=== PATIENT | male | born 1965 | race Caucasian/White ===

== ENCOUNTER → 2017-11-12 08:15 | Outpatient (CLI) | payer OTHER, SELFPAY ==
[2017-11-12 09:38] LABS: Prothrombin Time (Protime)PT. 13.4 SECONDS (11.7-14.9)
== END ==
PROVIDERS: Visit Provider Nurse Practitioner Family
DX: Z79.01 Long term (current) use of anticoagulants (principal)
CPT/HCPCS: 36415; 85610

== ENCOUNTER → 2017-12-10 09:30 | Outpatient (CLI) | payer OTHER, SELFPAY ==
[2017-12-10 10:39] LABS: Prothrombin Time (Protime)PT. 13.2 SECONDS (11.7-14.9)
== END ==
PROVIDERS: Visit Provider Nurse Practitioner Family
DX: Z79.01 Long term (current) use of anticoagulants (principal)
CPT/HCPCS: 36415; 85610

== ENCOUNTER → 2017-12-24 16:21 | Outpatient (CLI) | payer OTHER, SELFPAY | PROVIDERS: Visit Provider Physician Assistant Surgical | DX: J02.9 Acute pharyngitis, unspecified (principal) | CPT/HCPCS: 87081 ==

== ENCOUNTER → 2017-12-31 18:52 | Outpatient (CLI) | payer OTHER, SELFPAY | PROVIDERS: PCP Internal Medicine; Visit Provider Otolaryngology Otolaryngology/Facial Plastic Surgery | DX: J32.9 Chronic sinusitis, unspecified (principal); J02.9 Acute pharyngitis, unspecified | CPT/HCPCS: 87070 ==

== ENCOUNTER → 2018-01-21 09:57 | Outpatient (CLI) | payer OTHER, SELFPAY ==
[2018-01-21 10:46] LABS: Prothrombin Time (Protime)PT. 12.9 SECONDS (11.7-14.9)
== END ==
PROVIDERS: Family Provider Internal Medicine; PCP Internal Medicine; Visit Provider Nurse Practitioner Family
DX: Z79.01 Long term (current) use of anticoagulants (principal)
CPT/HCPCS: 36415; 85610

== ENCOUNTER → 2018-04-23 09:00 | Outpatient (CLI) | payer OTHER, SELFPAY ==
[2018-04-23 09:35] LABS: International Normalized Ratio 1.1; Prothrombin Time (Protime)PT. 14.1 SECONDS (11.7-14.9)
== END ==
PROVIDERS: Family Provider Internal Medicine; PCP Internal Medicine; Visit Provider Nurse Practitioner Family
DX: Z79.01 Long term (current) use of anticoagulants (principal)
CPT/HCPCS: 36415; 85610

== ENCOUNTER → 2018-05-29 08:50 | Outpatient (CLI) | payer OTHER, SELFPAY ==
[2018-05-29 10:00] LABS: International Normalized Ratio 1.1
== END ==
PROVIDERS: Family Provider Internal Medicine; PCP Internal Medicine; Visit Provider Nurse Practitioner Family
DX: Z79.01 Long term (current) use of anticoagulants (principal)
CPT/HCPCS: 36415; 85610

== ENCOUNTER → 2018-07-03 10:10 | Outpatient (CLI) | payer OTHER, SELFPAY ==
[2018-07-03 10:47] LABS: International Normalized Ratio 0.9; Prothrombin Time (Protime)PT. 12.5 SECONDS (11.7-14.9)
== END ==
PROVIDERS: Family Provider Internal Medicine; PCP Internal Medicine; Referring Provider Nurse Practitioner Family; Visit Provider Nurse Practitioner Family
DX: Z79.01 Long term (current) use of anticoagulants (principal)
CPT/HCPCS: 36415; 85610

== ENCOUNTER → 2018-08-11 09:39 | Outpatient (CLI) | payer OTHER, SELFPAY ==
[2018-08-11 09:36] VITALS: BMI 27.8
--- NOTE | 2018-08-11 09:42 | RAD_ITS ---
STUDY: X-RAY - BILATERAL RIBS WITH CHEST REASON FOR EXAM: Male, 53 years old. Rib pain following a fall. TECHNIQUE - RIBS: 5 view(s) of the ribs. TECHNIQUE - CHEST: Single PA view of the chest. COMPARISON: None. FINDINGS - RIBS : Normal visualized ribs without a demonstrated fracture. FINDINGS - CHEST: The lungs are clear and expanded. There is no demonstrated pleural abnormality. Normal size heart. Normal mediastinum and cherrie. Normal visualized pulmonary arteries. Normal visualized aortic arch and descending thoracic aorta. Normal visualized thoracic spine. Normal visualized ribs, clavicles, and shoulders. There is no demonstrated abnormality of the visualized soft tissue structures of the upper abdomen. RAD/Ribs Derek Min 4V w/PA Chest IMPRESSION: RIBS: Normal x-ray examination of the bilateral ribs. CHEST: Normal x-ray examination of the chest. Electronically Signed: Lior Nguyen MD at 10:28 EST Tel [phone], Service support ,
--- OUTSIDE RECORDS SUMMARY | 2018-10-04 13:58 | XMS RPT_ITS ---
:1965 Author Organization [place] Support Name Relationship Address Phone [employer] Unavailable [address] + [place] [address] GESSEL, POLINA Unavailable [address] + [place] [address] [employer] Unavailable [address] + [place] [address] [employer] Unavailable [address] + [place] [address] [employer] Unavailable [address] + [place] [address] [employer] POL[employer] Unavailable [address] + [place] [address] [employer] Unavailable [address] + [place] [address] [employer] POL[employer] Unavailable [address] + [place] [address] [employer] Unavailable [address] + [place] [address] [employer] POLINA Unavailable [address] + [place] [address] [employer] Unavailable [address] + [place] [address] [employer] POLINA Unavailable [address] + [place] [address] [employer] Unavailable [address] + [place] [address] [employer] POL[employer] Unavailable [address] + [place] [address] [employer] Unavailable [address] + [place] [address] [employer] POL[employer] Unavailable [address] + [place] [address] [employer] Unavailable [address] + [place] [address] [employer] POL[employer] Unavailable [address] + [place] [address] [employer] Unavailable [address] + [place] [address] [employer] POL[employer] Unavailable [address] + [place] [address] [employer] Unavailable [address] + [place] [address] [employer], POLINA Unavailable [address] + [place] [address] [employer] Unavailable [address] + [place] [address] [employer] POL[employer] Unavailable [address] + [place] [address] [employer] Unavailable [address] + [place] [address] [employer], POLINA Unavailable [address] + [place] [address] [employer] POL[employer] Unavailable [address] + [place] [address] S Unavailable Unavailable Unavailable [employer], POLINA Unavailable [address] + [place] [address] S Unavailable Unavailable Unavailable Care Team Providers Name Role Phone David Dawson Attending Unavailable Luanne Ballard Referring Unavailable Jace Vazquez Attending Unavailable DOCTOR, OUT OF TOWN Referring Unavailable KELLY CAIN Primary Care Unavailable PrePolina mulligan MEDICAL TRANSCRIBER-C Attending Unavailable PrebiPolina cole MEDICAL TRANSCRIBER-C Referring Unavailable KELLY CAIN Primary Care Unavailable Kirill, Miguel Angel Consulting Unavailable Prebish, Polina MEDICAL TRANSCRIBER-C Attending Unavailable Prebish, Polina MEDICAL TRANSCRIBER-C Referring Unavailable KELLY CAIN Primary Care Unavailable Kirill, Miguel Angel Consulting Unavailable Prebish, Polina MEDICAL TRANSCRIBER-C Attending Unavailable Prebish, Polina MEDICAL TRANSCRIBER-C Referring Unavailable KELLY CAIN Primary Care Unavailable Kirill, Miguel Angel Consulting Unavailable George, Jace Attending Unavailable DOCTOR, OUT OF TOWN Referring Unavailable KELLY CAIN Primary Care Unavailable George, Jace Attending Unavailable George, Jace Referring Unavailable Rhett Millard Attending Unavailable KELLY CAIN Primary Care Unavailable Venice, Rhett Referring Unavailable Prebish, Polina MEDICAL TRANSCRIBER-C Attending Unavailable Prebish, Polina MEDICAL TRANSCRIBER-C Referring Unavailable Nellie, Luanne Primary Care Unavailable Kirill, Miguel Angel Consulting Unavailable Prebish, Polina MEDICAL TRANSCRIBER-C Attending Unavailable PREBIS, RHETT Referring Unavailable Nellie, Luanne Primary Care Unavailable Prebish, Polina MEDICAL TRANSCRIBER-C Attending Unavailable Prebish, Polina MEDICAL TRANSCRIBER-C Referring Unavailable Nellie, Luanne Primary Care Unavailable Kirill, Miguel Angel Consulting Unavailable Nellie, Luanne Primary Care Unavailable Prebish, Polina MEDICAL TRANSCRIBER-C Attending Unavailable Prebish, Polina MEDICAL TRANSCRIBER-C Referring Unavailable Kirill, Miguel Angel Consulting Unavailable Rosyles, David Attending Unavailable Nellie, Luanne Referring Unavailable Wyles, David Attending Unavailable Wyles, David Referring Unavailable Nellie, Luanne Primary Care Unavailable Wyles, David Attending Unavailable Nellie, Luanne Referring Unavailable PROBLEMS PROBLEMS DATE TYPE CONDITION / CODE ATTENDING STATUS SOURCE 08/26/2018 Unknown S20.219A - David Dawson Active [place] Contusion of Community unspecified front Hospital wall of thorax, Repository initial encounter / S20.219A(ICD-10) 12/25/2017 Unknown J02.9 - Acute George, Jace Active [place] pharyngitis, Community unspecified / Hospital J02.9(ICD-10) Repository 09/13/2017 Unknown J01.90 - Acute George, Jace Active [place] sinusitis, Community unspecified / Hospital J01.90(ICD-10) Repository PROCEDURES PROCEDURES No Procedure Records FoundRESULTS RESULTS URGENT CARE VISIT Observed: 08/25/2018 Status: F Source: [place] [facility] [address] [place] [address] OFFICE VISIT Date of Service: 08/25/18 MR#: [id number] Acct: [id number] Name: MADELAINE JUARES Rep #: [id number] : 1965 Provider: David DOSS Age/Sex: 53/M Location: [facility] [place] Status: Signed Intake Vital Signs08/25/18 Height 5 ft 9 in 08/25/18 Weight: 189 lb Intake Visit Reasons: CHEST INJURY F/U Chief Complaint: Recheck chest wall injury Allergies Penicillins Allergy (Verified 08/11/18 09:37) Other Medications Celecoxib [Celebrex] 200 mg PO DAILY 05/14/15 [History Confirmed 08/11/18] Dextroamphetamine/Amphetamine [Adderall 10 mg Tablet] 10 mg PO TID 05/14/15 [History Confirmed 08/11/18] Warfarin [Coumadin (PBKC)] 4.5 mg PO DAILY 05/14/15 [History Confirmed 08/11/18] warfarin 1 mg tablet PO 30 Days #30 12/24/17 [History Confirmed 08/11/18] PFSH Medical History Back pain (Acute) Knee pain (Acute) Seizures (Acute) Shoulder pain (Acute) TBI (traumatic brain injury) (Acute) Surgical History History of back surgery (Acute) History of knee surgery (Acute) History of shoulder surgery (Acute) Family History Other DVT (deep venous thrombosis) Factor 5 Leiden mutation, heterozygous Social History Smoking Status: Never smoker alcohol intake: never HPI HPI Chief Complaint: Recheck chest wall injury Details: MADELAINE JUARES, is a 53 M who presents to the office today for reevaluation of chest wall injury. Patient notes since last evaluation here 1 week ago his symptoms persist with slight improvement. Admits localized anterior chest wall discomfort predominantly in sternal region but also bilateral anterior chest tang laterally to bilateral axilla regions. He also admits that he has been performing lifting duties and functions at work as well as at home outside of the restrictions as previously established. Lastly, even though patient is aware he should not be taking NSAIDs due to being on Celebrex as well as warfarin, nonetheless he has been taking Advil to assist with his discomfort stating [id number] Tylenol is not enough to help with his symptoms. He notes no complaints of fever, chills, sweats, cough, shortness of breath, fatigue, or bruising. He notes no other associated symptoms and no other alleviating or aggravating factors. ROS Const Constitutional: No other (ROS negative x10 other than as noted above) Exam Const General: cooperative, healthy appearing, in distress mild (Due to anterior chest wall discomfort patient states) Nutritional Appearance: average body habitus Orientation: alert, awake, oriented x3 HENMT Head: normal to inspection, normocephalic, atraumatic Eyes General: appearance normal, both eyes and all related structures Neck Neck: normal visual inspection, full ROM, no lymphadenopathy, no meningeal signs, supple Neck mass: No Thyroid: thyroid normal Lymphatic: no lymphadenopathy noted Chest Chest palpation AND inspection: normal inspection of the chest, no other (Anterior chest wall/sternal discomfort to palpation) Resp Effort AND Inspection: normal respiratory effort, able to speak in complete sentences, symmetric chest movement, no cough Auscultation: Bilateral: Clear to Auscultation Cardio Palpation: normal PMI Rate: regular rate Rhythm: regular rhythm Heart Sounds: S1 normal, S2 normal, no gallops, no murmurs, no rubs Pulses: radial pulses present Skin General: no rashes or lesions noted, no ecchymosis Neuro General: alert, awake, oriented x3, gait normal Cognition: normal cognition Speech: speech normal Gait: normal gait Motor: muscle tone normal throughout Sensory Exam: no sensory deficits noted Psych Appearance: grossly normal Mental Status: mental status grossly normal Mood: congruent mood Affect: normal affect Speech and Movement: speech and movement normal Attitude: cooperative Thought Process: normal Thought Content: normal Judgment: judgment good Assessment AND Plan Problems 1. Chest wall contusion S20.219A Plan No change in her work restrictions as noted on [employer] which was updated today. Patient again offered repeat chest radiographs today which he is refusing. Rest, cough and deep breathing exercises, and Tylenol as needed for symptomatic relief. Due to maintenance medications, abstain from all NSAID use. Follow-up with the now clinic on September 11, 2018, sooner should symptoms worsen or any other concerns develop. Patient states acknowledging understanding all the above. This note was generated with [employer] software. It may contain incorrect words, spelling, and punctuation that were not noted in checking the note before signing. Coding Level of Care Code Off vis,est,level 3 Diagnoses Chest wall contusion S20.219A 08/25/18 0820 <Electronically signed by David DOSS> Date David DOSS Cosigner Signature: Date (if applicable) CC: URGENT CARE VISIT Observed: 08/18/2018 Status: F Source: [place] REPORT 9:16 AM [facility] REPOSITORY [facility] [address] [place] [address] OFFICE VISIT Date of Service: 08/18/18 MR#: [id number] Acct: [id number] Name: MADELAINE JUARES Rep #: [id number] : 1965 Provider: David DOSS Age/Sex: 53/M Location: [facility] [place] Status: Signed Intake Vital Signs08/18/18 Body Mass Index (BMI) 27.8 08/18/18 Height 5 ft 9 in 08/18/18 Weight: 189 lb 08/18/18 Body Mass Index (BMI) 27.8 08/18/18 Blood Pressure 120/80 Intake Visit Reasons: CHEST INJURY FOLLOW UP/ WORK COMP Allergies Penicillins Allergy (Verified 08/11/18 09:37) Other Medications Celecoxib [Celebrex] 200 mg PO DAILY 05/14/15 [History Confirmed 08/11/18] Dextroamphetamine/Amphetamine [Adderall 10 mg Tablet] 10 mg PO TID 05/14/15 [History Confirmed 08/11/18] Warfarin [Coumadin (PBKC)] 4.5 mg PO DAILY 05/14/15 [History Confirmed 08/11/18] warfarin 1 mg tablet PO 30 Days #30 12/24/17 [History Confirmed 08/11/18] PFSH Medical History Back pain (Acute) Knee pain (Acute) Seizures (Acute) Shoulder pain (Acute) TBI (traumatic brain injury) (Acute) Surgical History History of back surgery (Acute) History of knee surgery (Acute) History of shoulder surgery (Acute) Family History Other DVT (deep venous thrombosis) Factor 5 Leiden mutation, heterozygous Social History Smoking Status: Never smoker alcohol intake: never HPI HPI Details: MADELAINE JUARES, is a 53 M who presents to the office today for recheck chest wall injury. Patient notes since his last evaluation here he has continued persistent moderate aching midsternal chest wall discomfort, noting intermittent popping sensations to the same with upper extremity range of motion or deep inspiration or to palpation. He notes no complaints of shortness of breath. He is taking [id number] products to assist with his symptoms. He has been working within the work restrictions. He notes no other associated symptoms no other alleviating or aggravating factors. ROS Const Constitutional: No other (ROS negative x10 other than as noted above) Exam Const General: cooperative, healthy appearing, no acute distress, uncomfortable (Due to anterior chest wall discomfort) Nutritional Appearance: average body habitus Orientation: alert, awake, oriented x3 Chest Chest palpation AND inspection: normal inspection of the chest, normal palpation of entire chest wall (sternal tenderness to palpation) Resp Effort AND Inspection: normal respiratory effort, able to speak in complete sentences, symmetric chest movement, no cough Auscultation: Bilateral: Clear to Auscultation Cardio Palpation: normal PMI Rate: regular rate Rhythm: regular rhythm Heart Sounds: S1 normal, S2 normal, no gallops, no murmurs, no rubs Pulses: radial pulses present GI Inspection: normal to inspection Palpation: soft, no hepatosplenomegaly Skin General: no rashes or lesions noted Neuro General: alert, awake, oriented x3, gait normal Cognition: normal cognition Speech: speech normal Gait: normal gait Motor: muscle tone normal throughout Sensory Exam: no sensory deficits noted Psych Appearance: grossly normal Mental Status: mental status grossly normal Mood: congruent mood Affect: normal affect Speech and Movement: speech and movement normal Attitude: cooperative Thought Process: normal Thought Content: normal Judgment: judgment good Assessment AND Plan Problems 1. Chest wall contusion S20.219A Plan No change in work restrictions. Patient offered repeat radiographs today which he is declining, stating he may reconsider next evaluation if symptoms do not improve at that point. Follow-up with the now clinic in 1 week for reevaluation, sooner should symptoms worsen or any other concerns develop. Patient states acknowledging understanding all the above. This note was generated with [employer] dictation software. It may contain incorrect words, spelling, and punctuation that were not noted in checking the note before signing. Coding Level of Care Code Off vis,est,level 3 Diagnoses Chest wall contusion S20.219A 08/18/18 0916 <Electronically signed by David DOSS> Date David DOSS Cosigner Signature: Date (if applicable) CC: URGENT CARE VISIT Observed: 08/11/2018 Status: F Source: [place] REPORT 10:41 AM [facility] [place] RE[facility]ITORY [facility] [address] [place] [address] OFFICE VISIT Date of Service: 08/11/18 MR#: [id number] Acct: [id number] Name: MADELAINE JUARES Rep #: [id number] : 1965 Provider: David DOSS Age/Sex: 53/M Location: [facility] [place] Status: Signed Intake Vital Signs08/11/18 Height 5 ft 9 in Intake Visit Reasons: CHEST INJURY PT FELL ON EQUIPMENT/ WORK COMP/ Chief Complaint: Chest wall trauma Allergies Penicillins Allergy (Verified 08/11/18 09:37) Other Medications Celecoxib [Celebrex] 200 mg PO DAILY 05/14/15 [History Confirmed 08/11/18] Dextroamphetamine/Amphetamine [Adderall 10 mg Tablet] 10 mg PO TID 05/14/15 [History Confirmed 08/11/18] Warfarin [Coumadin (PBKC)] 4.5 mg PO DAILY 05/14/15 [History Confirmed 08/11/18] warfarin 1 mg tablet PO 30 Days #30 12/24/17 [History Confirmed 08/11/18] [facility] Medical History Back pain (Acute) Knee pain (Acute) Seizures (Acute) Shoulder pain (Acute) TBI (traumatic brain injury) (Acute) Surgical History History of back surgery (Acute) History of knee surgery (Acute) History of shoulder surgery (Acute) Family History Other DVT (deep venous thrombosis) Factor 5 Leiden mutation, heterozygous Social History Smoking Status: Never smoker alcohol intake: never HPI HPI Chief Complaint: Chest wall trauma Details: MADELAINE JAURES, is a 53 M who presents to the office today for initial evaluation of chest wall trauma which patient states occurred at work on August 08, 2018. Patient states while working on product while standing outside slipped on icy ground falling forward hitting metal product against anterior chest wall directly over the sternum and just to the right of the sternum. He notes localized aching discomfort describing it as 7/10, with pain aggravated with deep inspiration as well as range of motion bilateral upper extremities. Due to the persistence of the symptoms patient wanted to be medically evaluated today. She notes no complaints of shortness of breath/difficulty breathing, though emphasizing deep inspiration does exacerbate discomfort. He notes no other associated symptoms and no other alleviating or aggravating factors. ROS Const Constitutional: No other (Review of systems negative x10 other than as noted above) Exam Const General: cooperative, healthy appearing, no acute distress, uncomfortable Nutritional Appearance: average body habitus Orientation: alert, awake, oriented x3 HENMT Head: normal to inspection Eyes General: appearance normal, both eyes and all related structures Neck Neck: normal visual inspection, full ROM Chest Chest palpation AND inspection: normal inspection of the chest, normal palpation of entire chest wall (Though midsternal tenderness to palpation; no ecchymosis to the same) Other: Bilateral ribs and PA chest x-rays today = no acute pathology per my review, pending radiologist interpretation at the time of this dictation Resp Effort AND Inspection: normal respiratory effort, able to speak in complete sentences, symmetric chest movement, no cough Auscultation: Bilateral: Clear to Auscultation Cardio Palpation: normal PMI Rate: regular rate Rhythm: regular rhythm Heart Sounds: S1 normal, S2 normal, no gallops, no murmurs, no rubs Pulses: radial pulses present GI Inspection: normal to inspection Palpation: soft Skin General: no rashes or lesions noted Neuro General: alert, awake, oriented x3, gait normal Cognition: normal cognition Speech: speech normal Gait: normal gait Motor: muscle tone normal throughout Sensory Exam: no sensory deficits noted Psych Appearance: grossly normal Mental Status: mental status grossly normal Mood: congruent mood Affect: normal affect Speech and Movement: speech and movement normal Attitude: cooperative Thought Process: normal Thought Content: normal Judgment: judgment good Assessment AND Plan Problems 1. Chest wall contusion S2 Plan Bilateral ribs and PA chest x-rays today = no acute pathology per my review, pending radiologist interpretation at the time of this dictation; the results reviewed with patient in office today. Return to work modified duty as noted on [employer] given to patient today. Rest, ice applications, Advil/Tylenol as needed for symptomatic relief. Recheck of the now clinic in 1 week for reevaluation, sooner should symptoms worsen or any other concerns develop. Patient states acknowledging understanding all the above. This note was generated with [employer] dictation software. It may contain incorrect words, spelling, and punctuation that were not noted in checking the note before signing. Orders Orders: Coding Level of Care Code Off vis,new,level 4 Diagnoses Chest wall contusion S20.08/11/18 1041 <Electronically signed by David DOSS> Date David DOSS Cosigner Signature: Date (if applicable) CC: RIBS DEREK MIN 4V Observed: 08/11/2018 Status: F Source: [place] W/PA CHEST 9:42 AM [facility] REPOSITORY [facility] Imaging Services [address] [place] [address] Ribs Derek Min 4V w/PA Chest MR#: [id number] Acct: [id number] Name: MADELAINE JUARES Rep #: [id number] : 1965 M 53 From: Lior Nguyen MD PCP: Luanne Ballard MD Status: REG CLI Study: Ribs Derek Min 4V w/PA Chest Date of Exam: 08/11/18 Exam# [id number] Ordering Dr: David Dawson STUDY: X-RAY - BILATERAL RIBS WITH CHEST REASON FOR EXAM: Male, 53 years old. Rib pain following a fall. TECHNIQUE - RIBS: 5 view(s) of the ribs. TECHNIQUE - CHEST: Single PA view of the chest. COMPARISON: None. FINDINGS - RIBS : Normal visualized ribs without a demonstrated fracture. FINDINGS - CHEST: The lungs are clear and expanded. There is no demonstrated pleural abnormality. Normal size heart. Normal mediastinum and cherrie. Normal visualized pulmonary arteries. Normal visualized aortic arch and descending thoracic aorta. Normal visualized thoracic spine. Normal visualized ribs, clavicles, and shoulders. There is no demonstrated abnormality of the visualized soft tissue structures of the upper abdomen. RAD/Ribs Derek Min 4V w/PA Chest IMPRESSION: RIBS: Normal x-ray examination of the bilateral ribs. CHEST: Normal x-ray examination of the chest. Electronically Signed: Lior Nguyen MD at 10:28 EST Tel [phone], Service support , CC: Luanne Ballard MD; David DOSS Supervisor Floor Assembly: Signed PROTHROMBIN TIME W/INR Collected: 07/03/2018 Status: F Source: [place] 10:20 AM [facility] REPOSITORY TYPE CODE TESTS RESULT OUT OF RANGE REFERENCE UNITS LAB L300.4150 11.7-14.9 SECONDS Normal PROTIME 12.5 LAB L300.4200 Normal INR 0.9 Performed By: #### L300.3900 #### [facility] [address] [place], [place], [address] PROTHROMBIN TIME W/INR Collected: 05/29/2018 Status: F Source: [place] 8:59 AM [facility] REPOSITORY TYPE CODE TESTS RESULT OUT OF RANGE REFERENCE UNITS LAB L300.4150 11.7-14.9 SECONDS Normal PROTIME 14.0 LAB L300.4200 Normal INR 1.1 Performed By: #### L300.3900 #### [facility] [address] [place], [address] PROTHROMBIN TIME W/INR Collected: 04/23/2018 Status: F Source: [place] 9:05 AM [facility] TYPE CODE TESTS RESULT OUT OF RANGE REFERENCE UNITS LAB L300.4150 11.7-14.9 SECONDS Normal PROTIME 14.1 LAB L300.4200 Normal INR 1.1 Performed By: #### L300.3900 #### [facility] [place], [address] PROTHROMBIN TIME W/INR Collected: 01/21/2018 Status: F Source: [place] 10:06 AM [facility] REPOSITORY TYPE CODE TESTS RESULT OUT OF RANGE REFERENCE UNITS LAB L300.4150 11.7-14.9 SECONDS Normal PROTIME 12.9 LAB L300.4200 Normal INR 1.0 Performed By: #### L300.3900 #### [facility] [address] [place], [place] [address] [place], [address] Observed: 12/31/2017 Status: F Source: [place] CULTURE, THROAT 11:00 AM [facility] [place] REPOSITORY Culture, Throat Mixed normal respiratory jovi. No Haemophilus, Streptococcus pneumoniae, beta-hemolytic Streptococcus or Staphylococcus aureus isolated. Performed By: #### M100.1000 #### [facility] [address] [place], [place], [address] URGENT CARE VISIT Observed: 12/24/2017 Status: F Source: [place] REPORT 11:25 AM [facility] [place] REPOSITORY [address] [place] [address] OFFICE VISIT Date of Service: 12/24/17 MR#: [id number] Acct: [id number] Name: MADELAINE JUARES Rep #: [id number] : 1965 Provider: Jace DOSS Age/Sex: 52/M Location: [facility] [place] Status: Signed Intake Vital Signs12/24/17 Height 5 ft 9 in 12/24/17 Weight: 182 lb 12/24/17 Body Mass Index (BMI) 26.9 12/24/17 Blood Pressure 142/90 Intake Visit Reasons: SORE THROAT X 1 MONTH [employer] Required: No Is patient in pain?: No Allergies Penicillins Allergy (Verified 12/24/17 09:27) Other Medications Celecoxib [Celebrex] 200 mg PO DAILY 05/14/15 [History Confirmed 09/13/17] Dextroamphetamine/Amphetamine [Adderall 10 mg Tablet] 10 mg PO TID 05/14/15 [History Confirmed 09/13/17] Warfarin [Coumadin (PBKC)] 4.5 mg PO DAILY 05/14/15 [History Confirmed 09/13/17] hydrocodone 5 mg-acetaminophen 325 mg tablet 1 tab PO Q6H 09/13/17 [History Confirmed 09/13/17] azithromycin 250 mg tablet 250 mg PO QDAY 5 Days #6 tab 12/24/17 [Rx Confirmed 12/24/17] warfarin 1 mg tablet PO 30 Days #30 12/24/17 [History Confirmed 12/24/17] PFSH Medical History Back pain (Acute) Knee pain (Acute) Seizures (Acute) Shoulder pain (Acute) TBI (traumatic brain injury) (Acute) Surgical History History of back surgery (Acute) History of knee surgery (Acute) History of shoulder surgery (Acute) Family History Other DVT (deep venous thrombosis) Factor 5 Leiden mutation, heterozygous Social History Smoking Status: Never smoker alcohol intake: never HPI HPI Details: MADELAINE JUARES, is a 52 M who presents to the office today for sore throat for the past 1 month. Patient states that at the beginning of the episode he had the flu which has completely resolved and then continued with sore throat. He also reports some episodes of nasal congestion and drainage however currently does not have this. He has tried several cafi-moo-pnwrdwk medications with no relief. He has had no fever, chills, sweats. No nausea, vomiting, diarrhea. No chest pain or shortness of breath. No other associated symptoms or alleviating/aggravating factors. ROS Const Constitutional: No fever(s), headache(s), anorexia, chills or abnormal sleep pattern ENT ENT: Positive for post nasal drip, sore throat, nasal congestion and nasal discharge; no headache(s) or ear pain Resp Respiratory: No shortness of breath Cardio Cardiology: No irregular heart rhythm or palpitations Gastro GI: No nausea/dyspepsia Neuro Neurology: No headache(s) or behavioral changes Psych Psychiatric: No abnormal sleep pattern, No behavioral changes Exam Const General: cooperative, healthy appearing HENMT Head: normal to inspection Ears: hearing grossly normal bilaterally, TM's normal bilaterally, EAC's normal Nose: external nose normal, nasal discharge clear Mouth: oral mucosae normal Throat: abnormal tonsil bilaterally Resp Effort AND Inspection: normal respiratory effort Auscultation: Bilateral: Clear to Auscultation Cardio Palpation: normal PMI Rate: regular rate Rhythm: regular rhythm Neuro General: CN's II-XI intact bilaterally, alert Psych Appearance: grossly normal Mental Status: mental status grossly normal Results BMSRAPIDSTREPA Office Rapid Strep A Negative Last Edit by Mary Craven on 12/24/17 10:22 Assessment AND Plan Problems 1. Acute pharyngitis, unspecified etiology J02.9 Status Acute Plan Azithromycin as prescribed today and patient notified of potential interactions with azithromycin and warfarin and to notify his provider who monitors his INR level. Encouraged to get plenty of rest, drink lots of clear liquids, and use Tylenol or Ibuprofen (unless contraindicated) for fever and comfort. Patient also educated on other symptomatic management techniques. To be seen in 7-10 days if no improvement; sooner if worsening of symptoms. Patient advised of potential red flags were appropriate report to the ED. Patient verbalized understanding of all the above. Orders Orders: Medications New: azithromycin Take 2 tabs once on day one then take one zavu128 mg PO QDAY 5 days J02.9 et once daily for the next 4 days. Coding Level of Care Code Off vis,est,level 3 Diagnoses Acute pharyngitis, unspecified etiology J02.9 Pharyngitis/tonsillitis etiology: unspecified etiology 12/24/17 1125 <Electronically signed by Jace DOSS> Date Jace DOSS Cosigner Signature: Date (if applicable) CC: Observed: 12/24/2017 Status: F Source: [place] CULTURE, R/O STREP A 10:00 AM [facility] REPOSITORY ALY Culture No Group A Beta Streptococcus isolated. * This cultures intended use is to screen for Beta Streptococcus A only. All other pathogens and potential pathogens will not be screened for or reported. If a complete workup of all potential pathogens is indicated an order for a routine throat culture is required. Performed By: #### M100.010 #### [facility] [address] [place], [address] PROTHROMBIN TIME W/INR Collected: 12/10/2017 Status: F Source: MARIBETH 9:34 AM [facility] REPOSITORY TYPE CODE TESTS RESULT OUT OF RANGE REFERENCE UNITS LAB L300.4150 11.7-14.9 SECONDS Normal PROTIME 13.2 LAB L300.4200 Normal INR 1.0 Performed By: #### L300.3900 #### [facility] [address] [place], [place], [address] PROTHROMBIN TIME W/INR Collected: 11/12/2017 Status: F Source: [place] 8:23 AM [facility] REPOSITORY TYPE CODE TESTS RESULT OUT OF RANGE REFERENCE UNITS LAB L300.4150 11.7-14.9 SECONDS Normal PROTIME 13.4 LAB L300.4200 Normal INR 1.0 Performed By: #### L300.3900 #### [facility] [address] [place], [address] PROTHROMBIN TIME W/INR Collected: 10/03/2017 Status: F Source: MAR[place]ETH 8:41 AM [facility] REPOSITORY TYPE CODE TESTS RESULT OUT OF RANGE REFERENCE UNITS LAB L300.4150 11.7-14.9 SECONDS Normal PROTIME 13.8 LAB L300.4200 Normal INR 1.1 Performed By: #### L300.3900 #### [facility] [address] [place], [address] URGENT CARE VISIT Observed: 09/13/2017 Status: F Source: MAR[place]ETH REPORT 4:52 PM [facility] REPOSITORY [facility] [address] [place] [address] [address] [place] [address] OFFICE VISIT Date of Service: 09/13/17 MR#: [id number] Acct: [id number] Name: MADELAINE JUARES Rep #: [id number] : 1965 Provider: Jace DOSS Age/Sex: 52/M Location: [facility] [place] Status: Signed Intake Vital Signs09/13/17 Height 5 ft 9 in Intake Visit Reasons: sinus infection Is patient in pain?: No Allergies Penicillins Allergy (Verified 09/13/17 16:34) Other Medications Celecoxib [Celebrex] 200 mg PO DAILY 05/14/15 [History Confirmed 09/13/17] Dextroamphetamine/Amphetamine [Adderall 10 mg Tablet] 10 mg PO TID 05/14/15 [History Confirmed 09/13/17] Warfarin [Coumadin (PBKC)] 4.5 mg PO DAILY 05/14/15 [History Confirmed 09/13/17] doxycycline hyclate 100 mg capsule 100 mg PO BID 10 Days #20 cap 09/13/17 [Rx Confirmed 09/13/17] hydrocodone 5 mg-acetaminophen 325 mg tablet 1 tab PO Q6H 09/13/17 [History Confirmed 09/13/17] PFSH Medical History Sinusitis, acute (Acute) Back pain (Acute) Knee pain (Acute) Seizures (Acute) Shoulder pain (Acute) TBI (traumatic brain injury) (Acute) Surgical History History of back surgery (Acute) History of knee surgery (Acute) History of shoulder surgery (Acute) Family History Other DVT (deep venous thrombosis) Factor 5 Leiden mutation, heterozygous Social History Smoking Status: Never smoker alcohol intake: never HPI sinus infection : Details: MADELAINE JUARES, is a 52 M who presents to the office today for sinus congestion/pressure for the past 2 weeks. Patient states that he initially started with cold type symptoms of cough nasal congestion and pressure with a cough resolving since then and the nasal pain and pressure increasing. Patient states over the past several days the congestion and pressure has caused a sinus headache and affected his equilibrium. Patient denies fever, chills, sweats. No chest pain or shortness of breath. No other associated symptoms or alleviating/aggravating factors. ROS Const Constitutional: Positive for headache(s); no fever(s), chills, night sweats or abnormal sleep pattern ENT ENT: Positive for headache(s), nasal congestion, sinus pressure, sinus pain and nasal discharge; no ear pain Resp Respiratory: No cough or shortness of breath Cardio Cardiology: No shortness of breath, irregular heart rhythm or fast heart rate Neuro Neurology: Positive for headache(s); no confusion Psych Psychiatric: No abnormal sleep pattern, No confusion Exam Const General: cooperative HENMT Head: normal to inspection Ears: hearing grossly normal bilaterally Nose: nasal discharge purulent Face and sinus: sinus tenderness frontal and maxillary Mouth: oral mucosae normal Throat: abnormal tonsil bilaterally, postnasal drainage Resp Effort AND Inspection: normal respiratory effort Auscultation: Bilateral: Clear to Auscultation Cardio Rate: regular rate Rhythm: regular rhythm Neuro General: alert, CN's II-XI intact bilaterally Psych Appearance: grossly normal Mental Status: mental status grossly normal Assessment AND Plan Problems 1. Acute non-recurrent frontal sinusitis J01.10; J01.10 Status Acute Plan Encouraged to get plenty of rest, drink lots of clear liquids, and use Tylenol or Ibuprofen (unless contraindicated) for fever and comfort. Patient also educated on other symptomatic management techniques. To be seen in 7-10 days if no improvement; sooner if worsening of symptoms. Patient advised of potential red flags and when appropriate report to the ED. Patient verbalized understanding all the above. Medications New: Discontinued: meclizine Discontinued Reason: Pt no lo25 mg PO Q8H PRN PRN Vertigo Pat craven taking cephalexin Discontinued Reason: Pt no l500 mg PO Q6 Pat N César onger taking Coding Level of Care Code Off vis,new,level 3 Diagnoses Acute non-recurrent frontal sinusitis J01.10; J01.10 Sinusitis location: frontal Recurrence: non-recurrent 09/13/17 1652 <Electronically signed by Jace DOSS> Date Jace DOSS Cosigner Signature: Date (if applicable) CC: ALLERGIES ALLERGIES DATE TYPE / CODE NAME / CODE REACTION SEVERITY SOURCE 08/11/2018 Drug Penicillins/ Other Unknown [facility] Allergy/4160 [id number]([facility] [address]772(SNOMED XNORM) Repository CT) ENCOUNTERS ENCOUNTERS ADMIT/DISCHARGE ACCOUNT ADMITTING ENCOUNTER LOCATION SOURCE NUMBER CLASS 08/25/2018/ [id number] Ambulatory BMSBuilding:B [place] 1 [place] Repository 08/18/2018/ [id number] Ambulatory BMSBuilding:B [place] 8 0 [place] Repository 08/11/2018 [id number] Ambulatory [place] 0 [facility] ing:HPRAD Repository 08/11/2018/ [id number] Ambulatory BMSBuilding:B [place] 8 5 [place] Repository 07/03/2018 [id number] Ambulatory [place] 7 [facility] ing:LAB Repository 05/29/2018 [id number] Ambulatory [place] 4 [facility] ing:LAB Repository 04/23/2018 [id number] Ambulatory [place] 6 [facility] ing:LAB Repository 01/21/2018 [id number] Ambulatory [place] 9 [facility] ing:LAB Repository 12/31/2017 [id number] Ambulatory [place] 2 [facility] ing:LABSPEC Repository 12/24/2017 [id number] Ambulatory [place] 0 [facility] ing:LABSPEC Repository 12/24/2017/ [id number] Ambulatory BMSBuilding:B [place] 8 8 [place] Repository 12/10/2017 [id number] Ambulatory [place] 8 [facility] ing:LAB Repository 11/12/2017 [id number] Ambulatory [place] 8 [facility] ing:LAB Repository 10/03/2017 [id number] Ambulatory [place] 9 [facility] ing:LAB Repository 09/13/2017/ [id number] Ambulatory BMSBuilding:B [place] 8 4 [place] [facility] Repository PAYERS PAYERS ENCOUNTER GUARANTOR PAYER SUBSCRIBER SOURCE 08/25/2018 MADELAINE R Primary Insurance:OB MADELAINE Toure [place] [id number] COMP MANAGEMENTPolicy GESSELDOB: [facility] RDAPPLE Number: [id number], [place] [id number] Repository [address]Aml: (330) Date:7487-69-80XU [phone] () [address] [place], [place] [address]TF: 08/25/2018 Secondary NOT GIVENUNK [place] Insurance:SELF PAY [facility] Number: Effective Repository Date:2018-08-25 08/18/2018 MADELAINE R Primary Insurance:[facility] MADELAINE [place] [id number] COMP MANAGEMENTPolicy GESSELDOB: [facility] RDAPPLE Number: [id number], [place] [id number] Repository [address]Jea: (330) Date:7212-21-24GX [phone] () [address] [place], [place] [address]BT: 08/18/2018 Secondary NOT GIVENUNK [place] Insurance:SELF PAY [facility] Number: Effective Repository Date:2018-08-18 08/11/2018 MADELAINE R Primary Insurance:OB MADELAINE Toure [place] [id number] COMP MANAGEMENTPolicy GESSELDOB: [facility] RDAPPLE Number: [id number], [place] [id number] Repository [address]Wuu: (330) Date:3083-70-72TL [phone] (HP) [address] [address]OW: 08/11/2018 Secondary NOT GIVENUNK [place] Insurance:SELF PAY [facility] Number: Effective Repository Date:2018-08-11 08/11/2018 MADELAINE R Primary MADELAINE R [place] [id number] Insurance:MEDICAL GESSELDOB: [facility] CATALINA PAULSON [facility] 2523-13-03DJXOg[place], [place] Number: Repository [id number]: 330 [id number] [phone] (HP) Date:8076-20-07AJ [address] [place] [phone]: 08/11/2018 Secondary NOT GIVENUNK [place] Insurance:SELF PAY [facility] Number: Effective Repository Date:2018-08-11 07/03/2018 MADELAINE R Primary MADELAINE R [place] [id number] Insurance:MEDICAL [facility]LDOB[facility] [id number], [place] Number: Repository [id number]: 330 [id number] [phone] (HP) Date:0610-03-76EC [address] [phone]: 07/03/2018 Secondary NOT GIVENUNK [place] Insurance:SELF PAY [facility] Number: Effective Repository Date:2018-07-03 05/29/2018 MADELAINE R Primary MADELAINE R [place] [id number] Insurance:MEDICAL GESSELDOB: [facility] CATALINA PAULSON [facility] [id number], [place] Number: Repository [id number]: 330 [id number] [phone] (HP) Date:5960-58-78YL [address] [phone]: 05/29/2018 Secondary NOT GIVENUNK [place] Insurance:SELF PAY [facility] Number: Effective Repository Date:2018-05-29 04/23/2018 MADELAINE R Primary MADELAINE R [place] [id number] Insurance:MEDICAL GESSELDOB: [facility] [id number], [place] Number: Repository [id number]: 330 [id number] [phone] (HP) Date:9245-66-24TZ [address] [address]IZ: 04/23/2018 Secondary NOT GIVENUNK [place] Insurance:SELF PAY [facility] Number: Effective Repository Date:2018-04-23 01/21/2018 MADELAINE R Primary MADELAINE R [place] [id number] Insurance:MEDICAL GESSELDOB: [facility] [id number], [place] Number: Repository [id number]: 330 [id number] [phone] (HP) Date:4344-81-88BL [address] [address]XC: 01/21/2018 Secondary NOT GIVENUNK [place] Insurance:SELF PAY [facility] Number: Effective Repository Date:2018-01-21 12/31/2017 MADELAINE R Primary MADELAINE R [place] [id number] Insurance:MEDICAL GESSELDOB: [facility] [id number], [place] Number: Repository [phone]: 330 [id number] [phone] (HP) Date:8675-47-91RS [address] [place] [address]IE: 12/31/2017 Secondary NOT GIVENUNK [place] Insurance:SELF PAY [facility] Number: Effective Repository Date:2017-12-31 12/24/2017 MADELAINE R Primary MADELAINE R [place] [id number] Insurance:MEDICAL GESSELDOB: [facility] [id number], [place] Number: Repository [id number]: 330 [id number] [phone] (HP) Date:7955-34-25WG [address] [place] [address]QN: 12/24/2017 Secondary NOT GIVENUNK [place] Insurance:SELF PAY [facility] Number: Effective Repository Date:2017-12-24 12/24/2017 MADELAINE R Primary MADELAINE R [place] [id number] Insurance:MEDICAL GESSELDOB: Community [facility] [id number], [place] Number: Repository [id number]: 330 [id number] [phone] (HP) Date:7323-71-27CR [address] [place] [address]HJ: 12/24/2017 Secondary NOT GIVENUNK [place] Insurance:SELF PAY [facility] Number: Effective Repository Date:2017-12-24 12/10/2017 MADELAINE R Primary MADELAINE R [place] [id number] Insurance:MEDICAL GESSELDOB: [facility] [id number], [place] Number: Repository [id number]: 330 [id number] [phone] (HP) Date:0904-08-85JV [address] [phone]: 12/10/2017 Secondary NOT GIVENUNK [place] Insurance:SELF PAY [facility] Number: Effective Repository Date:2017-12-10 11/12/2017 MADELAINE R Primary MADELAINE R [place] [id number] Insurance:MEDICAL GESSELDOB: [facility] 8394-93-09OCHOg[place], [place] Number: Repository [address]Plb: 330 [id number] [phone] (HP) Date:4189-00-64KE [address] [place] [phone]: 11/12/2017 Secondary NOT GIVENUNK [place] Insurance:SELF PAY [facility] Number: Effective Repository Date:2017-11-12 10/03/2017 MADELAINE R Primary MADELAINE Stahl [id number] Insurance:MEDICAL GESSELDOB: [facility] [id number], [place] Number: Repository [id number]: ([phone]) [id number] [phone] () Date:4292-93-89VB [address] [place] [address]DR: 10/03/2017 Secondary NOT GIVENUNK [place] Insurance:SELF PAY [facility] Number: Effective Repository Date:2017-10-03 09/13/2017 MADELAINE R Primary MADELAINE Stahl [id number] Insurance:MEDICAL GESSELDOB: [facility] [id number], [place] Number: Repository [id number]: ([phone]) [id number] [phone] () Date:2614-74-49MS [address] [place] [phone]: 09/13/2017 Secondary NOT GIVENUNK [place] Insurance:SELF PAY [facility] Number: Effective Repository Date:2017-09-13
== END ==
PROVIDERS: Family Provider Internal Medicine; PCP Internal Medicine; Referring Provider Physician Assistant; Visit Provider Physician Assistant
DX: S20.219A Contusion of unspecified front wall of thorax, initial encounter (principal)
CPT/HCPCS: 71111

== ENCOUNTER → 2018-10-05 11:41 | Outpatient (CLI) | payer OTHER, SELFPAY ==
[2018-10-02 08:17] VITALS: BMI 27.8
[2018-10-05 12:57] LABS: Prothrombin Time (Protime)PT. 13.1 SECONDS (11.7-14.9)
== END ==
PROVIDERS: Family Provider Internal Medicine; PCP Internal Medicine; Referring Provider Anesthesiology Pain Medicine; Visit Provider Anesthesiology Pain Medicine
DX: Z79.01 Long term (current) use of anticoagulants (principal)
CPT/HCPCS: 36415; 85610

== ENCOUNTER → 2018-12-18 | Outpatient (CLI) | payer OTHER, SELFPAY ==
[2018-10-02 08:17] VITALS: BMI 27.8
[2018-12-18 09:27] LABS: International Normalized Ratio 1.1; Prothrombin Time (Protime)PT. 13.5 SECONDS (11.7-14.9)
== END | disposition home or self-care (01) ==
LOC: LAB 08:34
PROVIDERS: Family Provider Internal Medicine; PCP Internal Medicine; Referring Provider Nurse Practitioner Family; Visit Provider Nurse Practitioner Family
DX: Z79.01 Long term (current) use of anticoagulants (principal)
CPT/HCPCS: 36415; 85610

== ENCOUNTER → 2019-01-27 | Outpatient (CLI) | payer OTHER, SELFPAY ==
[2018-10-02 08:17] VITALS: BMI 27.8
[2019-01-27 12:04] LABS: International Normalized Ratio 1.1; Prothrombin Time (Protime)PT. 13.8 SECONDS (11.7-14.9)
== END | disposition home or self-care (01) ==
LOC: LAB 08:55
PROVIDERS: Family Provider Internal Medicine; PCP Internal Medicine; Referring Provider Nurse Practitioner Family; Visit Provider Nurse Practitioner Family
DX: Z79.01 Long term (current) use of anticoagulants (principal)
CPT/HCPCS: 36415; 85610

== ENCOUNTER → 2019-04-15 07:07 | Outpatient (CLI) | payer OTHER, SELFPAY ==
[2019-03-21 12:07] VITALS: BMI 27.8
[2019-04-15 07:31] LABS: International Normalized Ratio 1.1; Prothrombin Time (Protime)PT. 13.7 SECONDS (11.7-14.9)
== END ==
PROVIDERS: Family Provider Internal Medicine; PCP Internal Medicine; Referring Provider Nurse Practitioner Family; Visit Provider Nurse Practitioner Family
DX: Z79.01 Long term (current) use of anticoagulants (principal)
CPT/HCPCS: 36415; 85610

== ENCOUNTER 2019-05-18 23:24 | Emergency (ER) | payer OTHER, SELFPAY ==
[2019-05-07 10:17] VITALS: BMI 27.8
[2019-05-18 23:25] VITALS: BP 160/93; PULSE 61; RESP 18; TEMP 36.8; O2SAT 100; BMI 24.8
--- NOTE | 2019-05-19 00:02 | CT_ITS ---
STUDY: CT SOFT TISSUE NECK WITH CONTRAST REASON FOR EXAM: Male, 54 years old. Pain in the right side of the face and neck. RADIATION DOSAGE (If Supplied By Facility): CTDIvol = ( 17.78 ) mGy, DLP = ( 430.48 ) mGycm TECHNIQUE: The patient was scanned in a multi-detector CT scanner. High resolution transaxial imaging was performed following intravenous administration of 75 IV Isovue 370. Sagittal and coronal images were reconstructed. Individualized dose optimization techniques were used for this CT. COMPARISON: None. FINDINGS: Normal bilateral parotid glands. Normal bilateral halal butcher spaces. Normal bilateral parapharyngeal spaces. Normal bilateral carotid spaces. Normal bilateral sublingual and submandibular glands and spaces. Normal visualized nasopharynx. Normal retropharyngeal space. Normal perivertebral space. Normal visualized bilateral faucial tonsils. The visualized tongue, tongue base and oropharynx are normal. The visualized cervical lymph nodes (levels I-) are within normal size limits, and maintain normal morphology. There is no demonstrated solid or cystic mass lesion. There is no abnormal contrast enhancement. Normal epiglottis, bilateral vallecula and hypopharynx. The pre-epiglottic and paraglottic adipose spaces are normal. Normal visualized bilateral piriform sinuses, aryepiglottic folds, vocal cords, and arytenoid-cricoid articulations. Normal subglottic trachea. Normal bilateral lobes of the thyroid gland. Normal visualized pulmonary apices. There is a polyp or retention cyst in the right maxillary sinus and there is mucoperiosteal thickening in bilateral ethmoid sinuses, consistent with chronic sinusitis. There is no demonstrated acute sinusitis, at the visualized levels. There is multilevel degenerative changes of the cervical spine. CT/Soft Tissue Neck WITH Contrast IMPRESSION: Normal enhanced CT examination of the soft tissues of the neck. Electronically Signed: Tim Melchor MD at 1:35 EDT , Service support ,
--- NOTE | 2019-05-19 00:03 | ED.DCSUM_ITS ---
History of Present Illness Chief Complaint: Other, Pain/Inj Narrative: Patient is a 54-year-old male who presents with right-sided neck pain. He has been having some right sided face pain for a couple weeks. This is sharp. It lasts up to 20 minutes at a time and he usually gets a couple episodes a day. However today his pain was a much larger area beginning at his collarbone all the way up to his scalp. He currently rates his pain as a 7-8 out of 10. He recently was treated for abscess stomatitis and the symptoms are improving. He also complains of right ear pain. The pain he was previously having seem to be centered at the back of the jaw and under the ear. His pain is also worse with palpation or certain movements. 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 No cough or congestion. Past Medical History - Allergies and Home Meds Allergies/Adverse Reactions: Allergies Penicillins Allergy (Verified 05/18/19 23:28) Other Primary Care Physician: Luanne Ballard MD [Primary Care Provider] - Past Medical History: - - Factor V Leiden, history of DVTs Smoking Status: Never smoker Review of Systems All systems negative except as indicated General: Denies: Fever ENT: Reports: Right ear pain, - - Facial pain, right neck pain Cardiovascular: Denies: Chest pain Respiratory: Denies: Dyspnea Gastrointestinal: Denies: Nausea, Vomiting Skin: Denies: Rash Neurological: Denies: Headache Physical Exam Vital Signs/Narrative: Vital Signs Temp Pulse Resp BP Pulse Ox 05/18/19 23:25 98.2 F 61 18 160/93 H 100 Inital Vital Signs reviewed: Yes General: Well nourished, Well developed Head: Normocephalic Eyes: EOMI ENT: Moist mucous membranes, TM's clear Neck: Supple, - - Patient does have tenderness along the soft tissue of the neck on the right side no appreciable mass no lymphadenopathy no facial or sinus tenderness Cardiovascular: Regular rate, Regular rhythm, - - No carotid bruit Respiratory: No distress, CTA bilaterally Abdomen: Soft Skin: No rash Neurological: Alert, Normal Strength, Normal Sensation, - - No focal or lateralizing neurological deficits Diagnostic/Tx/Re-eval Impressions Soft Tissue Neck CT 05/19/19 00:02 IMPRESSION: Normal enhanced CT examination of the soft tissues of the neck. Electronically Signed: Tim Melchor MD at 1:35 EDT , Service support , 05/19/19 00:02 Soft Tissue Neck WITH Contrast [CT] Stat Laboratory Results 05/19/19 05/19/19 05/19/19 00:10 00:10 00:10 WBC 3.9 L RBC 4.44 L Hgb 14.1 Hct 42.1 MCV 94.8 H MCH 31.8 MCHC 33.5 RDW Std Deviation 41.6 RDW Coeff of Jazmin 11.9 Plt Count 188 MPV 9.7 Immature Gran % (Auto) 0.300 Neut % (Auto) 48.7 Lymph % (Auto) 36.7 [place] % (Auto) 9.9 Eos % (Auto) 3.6 Baso % (Auto) 0.8 Absolute Neuts (auto) 1.9 L Absolute Lymphs (auto) 1.44 Nucleated RBC % 0 PT 23.9 H INR 2.1 Sodium 143 Potassium 3.6 Chloride 108 H Carbon Dioxide 31.0 Anion Gap 4 L BUN 12 Creatinine 1.10 Estim Creat Clear Calc 77.42 Est GFR (MDRD) Af Amer 89 Est GFR (MDRD) Non-Af 74 BUN/Creatinine Ratio 10.9 Glucose 93 Calcium 9.1 - Medical Decision Making Laboratory study and imaging as above. Initial differential include processes such as neck mass or infection or with his history of coagulopathy jugular thrombosis was also considered. Therefore CT of the soft tissue the neck with IV contrast was obtained. Fortunately this is normal. The etiology of the patient's symptoms is unclear. I discussed possibilities with him including trigeminal neuralgia given his facial and scalp pain although I would not expect this to cause any pain in the neck. He was advised to follow-up as an outpatient for further evaluation. He actually has an appointment with otolaryngology in the morning. We discussed that if they are unable to find a diagnosis he may need to see neurology. Patient understands to return for new or worsening symptoms. All questions answered at bedside. He was treated with morphine and Zofran here and feels much better on reevaluation. He has [place] at home. Patient discharged. ED Disposition - Plan for ED Patient: Disposition: Home or Assisted Living Diagnosis: Facial pain, Neck pain on right side Referrals: Luanne Ballard MD [Primary Care Provider] - Additional Instructions: You were seen today for facial and neck pain. The cause of your symptoms is unclear at this point but did not appear to be due to an acute life-threatening problem. Your laboratory studies and CAT scan were okay. You should return if he develop new or worsening symptoms and otherwise follow-up as an outpatient.
[2019-05-19] MEDS: Ondansetron 4 MG/2 ML Vial IV (00:11)
[2019-05-19] MEDS: Morphine 4 MG/ML Syringe IV (00:12)
[2019-05-19 00:26] LABS: Absolute Lymphocyte Count 1.44 X10^3/uL (0.83-4.51); Absolute Neutrophil Count 1.9 X10^3/uL (2.0-7.7); Basophil# 0.03 X10^3/uL; Basophil% 0.8 % (0-1); Eosinophil# 0.14 X10^3/uL; Eosinophils% 3.6 % (0-5); Hematocrit 42.1 % (40-54); Hemoglobin 14.1 g/dL (13.0-16.5); Lymphocyte # 1.44 X10^3/ul (4.0); Lymphocyte % 36.7 % (19-41); Mean Corp Hgb Conc 33.5 g/dL (32-36); Mean Corpuscular Hgb 31.8 pg (27.0-32.0); Mean Corpuscular Volume 94.8 fL (80-94); Mean Platelet Vol. 9.7 fl (6.2-12.0); Monocyte# 0.39 X10^3/uL; Monocyte% 9.9 % (0-10); NRBC Flagged by Analyzer 0 % (0-5); Neutrophil # 1.91 X10^3/uL (2.7-7.7); Neutrophil % 48.7 % (47-70); Platelet Count 188 K/mm3 (150-450); RBC Distribution Width CV 11.9 % (11.6-14.6); RBC Distribution Width SD 41.6 fl (35.1-43.9); Red Blood Count 4.44 M/mm3 (4.6-6.2); White Blood Count 3.9 K/mm3 (4.4-11.0)
[2019-05-19 00:33] LABS: International Normalized Ratio 2.1; Prothrombin Time (Protime)PT. 23.9 SECONDS (11.7-14.9)
[2019-05-19 00:38] LABS: Anion Gap 4 (5-15); BUN 12 mg/dL (7-18); BUN/Creat Ratio 10.9 RATIO (10-20); Calcium,Total 9.1 mg/dL (8.5-10.1); Chloride 108 mmol/L (98-107); EST Glomerular Filtration Rate 74 mL/min (>60); Est Glom Filt Rate - Afr Amer 89 mL/min (>60); Estimated Creatinine Clearance 77.42 ml/min; Glucose 93 mg/dL (74-106); Potassium 3.6 mmol/L (3.5-5.1); Sodium Level 143 mmol/L (136-145)
[2019-05-19 01:54] VITALS: BP 138/83; PULSE 56; RESP 17; O2SAT 99
--- NOTE | 2019-05-19 01:54 | ED.RN ---
PT AND FAMILY GIVEN WRITTEN AND VERBAL DISCHARGE INSTRUCTIONS. PT EDUCATED ON FOLLOW UP, PT TO RETURN TO ED FOR ANY NEW OR WORSENED SX. PT VERBALIZES UNDERSTANDING AND DENIES ANY FURTHER QUESTIONS. IV D/C AND COVERED WITH 2X2 GAUZE AND PAPER TAPE. PT AMBULATES OUT OF DEPT WITH .
== END 2019-05-19 01:56 | disposition home or self-care (01) ==
PROVIDERS: Emergency Provider Emergency Medicine; Family Provider Internal Medicine; PCP Internal Medicine
DX: M54.2 Cervicalgia (principal); R51 Headache; D68.51 Activated protein C resistance; Z86.718 Personal history of other venous thrombosis and embolism; Z79.01 Long term (current) use of anticoagulants
CPT/HCPCS: 70491; 80048; 85025; 85610; 96374; 96375; 99283; Q9967; A4216; J2405

== ENCOUNTER → 2019-05-19 | Outpatient (CLI) | payer OTHER, SELFPAY ==
[2019-05-18 23:25] VITALS: BMI 24.8
== END | disposition home or self-care (01) ==
LOC: LABSPEC 15:22
PROVIDERS: Family Provider Internal Medicine; PCP Internal Medicine; Referring Provider Otolaryngology Otolaryngology/Facial Plastic Surgery; Visit Provider Otolaryngology Otolaryngology/Facial Plastic Surgery
DX: K12.1 Other forms of stomatitis (principal)
CPT/HCPCS: 87070

== ENCOUNTER → 2019-07-14 | Outpatient (CLI) | payer OTHER, SELFPAY ==
[2019-07-14 09:44] LABS: International Normalized Ratio 1.1; Prothrombin Time (Protime)PT. 13.5 SECONDS (11.7-14.9)
== END | disposition home or self-care (01) ==
LOC: LAB 08:40
PROVIDERS: Family Provider Internal Medicine; PCP Internal Medicine; Referring Provider Anesthesiology Pain Medicine; Visit Provider Anesthesiology Pain Medicine
DX: Z79.01 Long term (current) use of anticoagulants (principal)
CPT/HCPCS: 36415; 85610

== ENCOUNTER → 2019-08-25 09:34 | Outpatient (CLI) | payer OTHER, SELFPAY ==
[2019-08-25 10:55] LABS: International Normalized Ratio 1.1; Prothrombin Time (Protime)PT. 13.7 SECONDS (11.7-14.9)
== END ==
PROVIDERS: Family Provider Internal Medicine; PCP Internal Medicine; Referring Provider Nurse Practitioner Family; Visit Provider Nurse Practitioner Family
DX: Z79.01 Long term (current) use of anticoagulants (principal)
CPT/HCPCS: 36415; 85610

== ENCOUNTER → 2019-09-29 09:10 | Outpatient (CLI) | payer OTHER, SELFPAY ==
[2019-09-29 10:01] LABS: Prothrombin Time (Protime)PT. 13.4 SECONDS (11.7-14.9)
== END ==
PROVIDERS: PCP Internal Medicine; Referring Provider Nurse Practitioner Family; Visit Provider Nurse Practitioner Family
DX: Z79.01 Long term (current) use of anticoagulants (principal)
CPT/HCPCS: 36415; 85610

== ENCOUNTER → 2020-01-20 | Outpatient (CLI) | payer OTHER, SELFPAY ==
[2020-01-20 09:39] LABS: Prothrombin Time (Protime)PT. 12.9 SECONDS (11.7-14.9)
== END | disposition home or self-care (01) ==
LOC: LAB 08:02
PROVIDERS: PCP Internal Medicine; Referring Provider Nurse Practitioner Family; Visit Provider Nurse Practitioner Family
DX: Z79.01 Long term (current) use of anticoagulants (principal)
CPT/HCPCS: 36415; 85610

== ENCOUNTER → 2020-02-23 | Outpatient (CLI) | payer OTHER, SELFPAY ==
[2020-02-23 10:22] LABS: Prothrombin Time (Protime)PT. 13.1 SECONDS (11.7-14.9)
== END | disposition home or self-care (01) ==
LOC: LAB 09:24
PROVIDERS: PCP Internal Medicine; Referring Provider Nurse Practitioner Family; Visit Provider Nurse Practitioner Family
DX: Z79.01 Long term (current) use of anticoagulants (principal)
CPT/HCPCS: 36415; 85610

== ENCOUNTER → 2020-04-12 | Outpatient (CLI) | payer OTHER, SELFPAY ==
[2020-04-12 10:16] LABS: International Normalized Ratio 1.1; Prothrombin Time (Protime)PT. 13.4 SECONDS (11.7-14.9)
== END | disposition home or self-care (01) ==
LOC: LAB 09:27
PROVIDERS: PCP Internal Medicine; Referring Provider Nurse Practitioner Family; Visit Provider Nurse Practitioner Family
DX: Z79.01 Long term (current) use of anticoagulants (principal)
CPT/HCPCS: 36415; 85610

== ENCOUNTER → 2020-06-08 | Outpatient (CLI) | payer OTHER, SELFPAY ==
[2020-06-08 10:24] LABS: International Normalized Ratio 1.1; Prothrombin Time (Protime)PT. 13.5 SECONDS (11.7-14.9)
== END | disposition home or self-care (01) ==
LOC: LAB 09:11
PROVIDERS: PCP Internal Medicine; Referring Provider Nurse Practitioner Family; Visit Provider Nurse Practitioner Family
DX: Z79.01 Long term (current) use of anticoagulants (principal)
CPT/HCPCS: 36415; 85610

== ENCOUNTER → 2020-08-02 09:13 | Outpatient (CLI) | payer OTHER, SELFPAY ==
[2020-08-02 09:48] LABS: Prothrombin Time (Protime)PT. 12.7 SECONDS (11.7-14.9)
== END ==
PROVIDERS: PCP Internal Medicine; Referring Provider Nurse Practitioner Family; Visit Provider Nurse Practitioner Family
DX: Z79.01 Long term (current) use of anticoagulants (principal)
CPT/HCPCS: 36415; 85610

== ENCOUNTER → 2020-09-13 09:13 | Outpatient (CLI) | payer OTHER, SELFPAY ==
[2020-09-13 10:23] LABS: Prothrombin Time (Protime)PT. 12.6 SECONDS (11.7-14.9)
== END ==
PROVIDERS: PCP Internal Medicine; Referring Provider Nurse Practitioner Family; Visit Provider Nurse Practitioner Family
DX: Z79.01 Long term (current) use of anticoagulants (principal)
CPT/HCPCS: 36415; 85610

== ENCOUNTER → 2020-11-01 09:29 | Outpatient (CLI) | payer OTHER, SELFPAY ==
[2020-11-01 10:20] LABS: International Normalized Ratio 1.1; Prothrombin Time (Protime)PT. 13.4 SECONDS (11.7-14.9)
== END ==
PROVIDERS: PCP Internal Medicine; Referring Provider Nurse Practitioner Family; Visit Provider Nurse Practitioner Family
DX: Z79.01 Long term (current) use of anticoagulants (principal)
CPT/HCPCS: 36415; 85610

== ENCOUNTER → 2020-11-29 09:34 | Outpatient (CLI) | payer OTHER, SELFPAY ==
[2020-11-29 10:06] LABS: Prothrombin Time (Protime)PT. 12.8 SECONDS (11.7-14.9)
== END ==
PROVIDERS: PCP Internal Medicine; Referring Provider Nurse Practitioner Family; Visit Provider Nurse Practitioner Family
DX: Z79.01 Long term (current) use of anticoagulants (principal)
CPT/HCPCS: 36415; 85610

== ENCOUNTER → 2021-02-14 09:16 | Outpatient (CLI) | payer OTHER, SELFPAY ==
[2021-02-14 10:20] LABS: Prothrombin Time (Protime)PT. 12.5 SECONDS (11.7-14.9)
== END ==
PROVIDERS: PCP Internal Medicine; Referring Provider Nurse Practitioner Family; Visit Provider Nurse Practitioner Family
DX: Z79.01 Long term (current) use of anticoagulants (principal)
CPT/HCPCS: 36415; 85610

== ENCOUNTER → 2021-03-30 08:39 | Outpatient (CLI) | payer OTHER, SELFPAY ==
[2021-03-30 10:33] LABS: Prothrombin Time (Protime)PT. 12.8 SECONDS (11.7-14.9)
== END ==
PROVIDERS: PCP Internal Medicine; Referring Provider Nurse Practitioner Family; Visit Provider Nurse Practitioner Family
DX: Z79.01 Long term (current) use of anticoagulants (principal)
CPT/HCPCS: 36415; 85610

== ENCOUNTER → 2021-05-09 09:45 | Outpatient (CLI) | payer OTHER, SELFPAY ==
--- NOTE | 2021-05-09 09:57 | BD_ITS ---
STUDY: DUAL ENERGY X-RAY ABSORPTIOMETRY / DXA REASON FOR EXAM: Male, 56 years old. Z79.52. TECHNIQUE: Bone Mineral Density (BMD) measurements of lumbar spine and bilateral hips were obtained. COMPARISON: None. FINDINGS: Lumbar Spine (L1-L4): g/cm2 (0.813) / T-score (-2.5) / Z-score (-2.0) Findings are suggestive of osteopenia with a high fracture risk. Left Femur Total: g/cm2 (0.784) / T-score (-1.6) / Z-score (-1.2) Left Femoral Neck: g/cm2 (0.686) / T-score (-1.8) / Z-score (-0.9) Right Femur Total: g/cm2 (0.773) / T-score (-1.7) / Z-score (-1.3) Right Femoral Neck: g/cm2 (0.713) / T-score (-1.6) / Z-score (-0.7) . BD/Dexa Bone Density Study IMPRESSION: The patient is considered osteopenic as outlined below according to World Luis Daniel Organization (WHO) criteria with a high fracture risk. Reference Information: The T-score is the number of standard deviations above or below the standard which is normal for young adults at their peak bone mineral density. The World Health Organization (WHO) interprets the T-scores as follows: Above -1 Normal bone density Between -1 and -2.5 Osteopenia Equal to / or below -2.5 Osteoporosis As a practical clinical guideline, osteopenia may be graded as follows: Mild -1 through -1.5 Moderate -1.6 through -2.0 Severe -2.1 through -2.4 The Z-score is the number of standard deviations above or below age-matched controls. A Z-score of less than -1.5 would be considered abnormal. References: 1. NIH Osteoporosis and Related Bone Diseases www osteo.org 2. International Society for Clinical Densitometry www iscd.org 3. National Osteoporosis Foundation www nof.org Electronically Signed: Lior Nguyen MD at 11:58 EDT , Service support ,
== END ==
PROVIDERS: PCP Internal Medicine; Referring Provider Internal Medicine; Visit Provider Internal Medicine
DX: Z79.52 Long term (current) use of systemic steroids (principal)
CPT/HCPCS: 77080

== ENCOUNTER → 2021-05-24 07:39 | Outpatient (CLI) | payer OTHER, SELFPAY ==
[2021-05-24 08:32] LABS: International Normalized Ratio 1.1; Prothrombin Time (Protime)PT. 13.3 SECONDS (11.7-14.9)
== END ==
PROVIDERS: PCP Internal Medicine; Referring Provider Nurse Practitioner Family; Visit Provider Nurse Practitioner Family
DX: Z79.01 Long term (current) use of anticoagulants (principal)
CPT/HCPCS: 36415; 85610

== ENCOUNTER → 2021-06-29 09:10 | Outpatient (CLI) | payer OTHER, SELFPAY ==
[2021-06-29 09:52] LABS: Prothrombin Time (Protime)PT. 12.7 SECONDS (11.7-14.9)
== END ==
PROVIDERS: PCP Internal Medicine; Referring Provider Nurse Practitioner Family; Visit Provider Nurse Practitioner Family
DX: Z79.01 Long term (current) use of anticoagulants (principal)
CPT/HCPCS: 36415; 85610

== ENCOUNTER 2021-10-05 09:03 | Outpatient (CLI) | payer OTHER, SELFPAY ==
[2021-10-05 09:45] LABS: Absolute Lymphocyte Count 1.53 X10^3/uL (0.83-4.51); Absolute Neutrophil Count 5.1 X10^3/uL (2.0-7.7); Basophil# 0.04 X10^3/uL; Basophil% 0.5 % (0-1); Eosinophil# 0.19 X10^3/uL; Eosinophils% 2.6 % (0-5); Hematocrit 42.6 % (40-54); Hemoglobin 14.1 g/dL (13.0-16.5); Lymphocyte # 1.53 X10^3/ul (0.83-4.51); Lymphocyte % 20.9 % (19-41); Mean Corp Hgb Conc 33.1 g/dL (32-36); Mean Corpuscular Hgb 30.9 pg (27.0-32.0); Mean Corpuscular Volume 93.4 fL (80-94); Mean Platelet Vol. 10.1 fl (6.2-12.0); Monocyte# 0.46 X10^3/uL; Monocyte% 6.3 % (0-10); NRBC Flagged by Analyzer 0 % (0-5); Neutrophil # 5.09 X10^3/uL (2.7-7.7); Neutrophil % 69.4 % (47-70); Platelet Count 244 K/mm3 (150-450); RBC Distribution Width CV 12.1 % (11.6-14.6); RBC Distribution Width SD 41.8 fl (35.1-43.9); Red Blood Count 4.56 M/mm3 (4.6-6.2); White Blood Count 7.3 K/mm3 (4.4-11.0)
[2021-10-05 09:52] LABS: Prothrombin Time (Protime)PT. 12.8 SECONDS (11.7-14.9)
[2021-10-05 10:19] LABS: Hepatitis B Surface Antibody Non-Reactive
[2021-10-05 10:27] LABS: AST(SGOT) 27 U/L (15-37); Alanine Aminotransfer ALT/SGPT 29 U/L (16-61); Albumin, Serum 3.6 g/dL (3.2-5.0); Alkaline Phosphatase 83 U/L (45-117); Anion Gap 3 (5-15); BUN 16 mg/dL (7-18); BUN/Creat Ratio 16.4 RATIO (10-20); Chloride 107 mmol/L (98-107); Creatinine, Serum 0.98 mg/dL (0.70-1.30); EST Glomerular Filtration Rate 84 mL/min (>60); Est Glom Filt Rate - Afr Amer 101 mL/min (>60); Globulin 3.6 g/dL (2.2-4.2); Glucose 90 mg/dL (74-106); Potassium 4.2 mmol/L (3.5-5.1); Protein, Total 7.2 g/dL (6.4-8.2); Sodium Level 139 mmol/L (136-145)
[2021-10-06 08:09] LABS: HEPATITIS B SURFACE AG Negative (Negative); Hepatitis A IgM Antibody Negative (Negative); Hepatitis B Core AB IgM Negative (Negative)
[2021-10-06 17:54] LABS: Hep C Antibodies <0.1 s/co ratio (0.0-0.9); Hepatitis A AB, Total Positive (Negative)
== END 2021-10-05 23:59 | disposition short-term general hospital (02) ==
LOC: LAB 09:07
PROVIDERS: PCP Internal Medicine; Referring Provider Dermatology; Visit Provider Dermatology
DX: L43.8 Other lichen planus (principal); L40.0 Psoriasis vulgaris
CPT/HCPCS: 36415; 80053; 80074; 85025; 85610; 86706; 86708

== ENCOUNTER 2021-11-07 07:11 | Outpatient (CLI) | payer OTHER, SELFPAY ==
[2021-11-07 08:17] LABS: International Normalized Ratio 1.1; Prothrombin Time (Protime)PT. 13.1 SECONDS (11.7-14.9)
== END 2021-11-07 23:59 | disposition home or self-care (01) ==
LOC: LAB 07:12
PROVIDERS: PCP Internal Medicine; Referring Provider Nurse Practitioner Family; Visit Provider Nurse Practitioner Family
DX: Z79.01 Long term (current) use of anticoagulants (principal)
CPT/HCPCS: 36415; 85610

== ENCOUNTER 2021-12-12 10:13 | Outpatient (CLI) | payer OTHER, SELFPAY ==
[2021-12-12 11:15] LABS: Absolute Lymphocyte Count 1.52 X10^3/uL (0.83-4.51); Absolute Neutrophil Count 2.8 X10^3/uL (2.0-7.7); Basophil# 0.04 X10^3/uL; Basophil% 0.8 % (0-1); Eosinophil# 0.23 X10^3/uL; Eosinophils% 4.6 % (0-5); Hematocrit 44.7 % (40-54); Hemoglobin 14.8 g/dL (13.0-16.5); Lymphocyte # 1.52 X10^3/ul (0.83-4.51); Lymphocyte % 30.7 % (19-41); Mean Corp Hgb Conc 33.1 g/dL (32-36); Mean Corpuscular Hgb 30.6 pg (27.0-32.0); Mean Corpuscular Volume 92.5 fL (80-94); Mean Platelet Vol. 9.8 fl (6.2-12.0); Monocyte# 0.39 X10^3/uL; Monocyte% 7.9 % (0-10); NRBC Flagged by Analyzer 0 % (0-5); Neutrophil # 2.76 X10^3/uL (2.7-7.7); Neutrophil % 55.8 % (47-70); Platelet Count 217 K/mm3 (150-450); RBC Distribution Width CV 12.5 % (11.6-14.6); RBC Distribution Width SD 42.7 fl (35.1-43.9); Red Blood Count 4.83 M/mm3 (4.6-6.2)
[2021-12-12 11:50] LABS: ALB/GLOB Ratio 1.1 RATIO (0.9-2.4); AST(SGOT) 29 U/L (15-37); Alanine Aminotransfer ALT/SGPT 36 U/L (16-61); Albumin, Serum 3.7 g/dL (3.2-5.0); Alkaline Phosphatase 73 U/L (45-117); Anion Gap 2 (5-15); BUN 9 mg/dL (7-18); Chloride 106 mmol/L (98-107); EST Glomerular Filtration Rate 82 mL/min (>60); Est Glom Filt Rate - Afr Amer 99 mL/min (>60); Globulin 3.5 g/dL (2.2-4.2); Glucose 87 mg/dL (74-106); Potassium 4.2 mmol/L (3.5-5.1); Protein, Total 7.2 g/dL (6.4-8.2); Sodium Level 139 mmol/L (136-145)
[2021-12-12 11:54] LABS: International Normalized Ratio 1.1; Prothrombin Time (Protime)PT. 13.4 SECONDS (11.7-14.9)
== END 2021-12-12 23:59 | disposition home or self-care (01) ==
PROVIDERS: PCP Internal Medicine; Visit Provider Dermatology
DX: L43.8 Other lichen planus (principal); B02.29 Other postherpetic nervous system involvement
CPT/HCPCS: 36415; 80053; 85025; 85610

== ENCOUNTER → 2022-01-16 | Outpatient (CLI) | payer OTHER, SELFPAY ==
[2022-01-16 10:19] LABS: International Normalized Ratio 1.1; Prothrombin Time (Protime)PT. 13.9 SECONDS (11.7-14.9)
== END | disposition home or self-care (01) ==
LOC: LAB 09:00
PROVIDERS: PCP Internal Medicine; Referring Provider Nurse Practitioner Family; Visit Provider Nurse Practitioner Family
DX: Z79.01 Long term (current) use of anticoagulants (principal)
CPT/HCPCS: 36415; 85610

== ENCOUNTER → 2022-04-17 | Outpatient (CLI) | payer OTHER, SELFPAY ==
[2022-04-17 10:11] LABS: Prothrombin Time (Protime)PT. 12.7 SECONDS (11.7-14.9)
== END | disposition home or self-care (01) ==
LOC: LAB 08:29
PROVIDERS: PCP Internal Medicine; Visit Provider Nurse Practitioner Family
DX: Z79.01 Long term (current) use of anticoagulants (principal)
CPT/HCPCS: 36415; 85610

== ENCOUNTER → 2022-06-21 | Outpatient (CLI) | payer OTHER, SELFPAY ==
[2022-06-21 10:29] LABS: Prothrombin Time (Protime)PT. 12.9 SECONDS (11.7-14.9)
== END | disposition home or self-care (01) ==
PROVIDERS: PCP Internal Medicine; Referring Provider Nurse Practitioner Family; Visit Provider Nurse Practitioner Family
DX: Z79.01 Long term (current) use of anticoagulants (principal)
CPT/HCPCS: 36415; 85610

== ENCOUNTER → 2022-07-31 | Outpatient (CLI) | payer OTHER, SELFPAY ==
[2022-07-31 09:43] LABS: Absolute Lymphocyte Count 1.39 X10^3/uL (0.83-4.51); Basophil# 0.04 X10^3/uL; Basophil% 0.6 % (0-1); Eosinophil# 0.29 X10^3/uL; Eosinophils% 4.7 % (0-5); Hematocrit 43.5 % (40-54); Hemoglobin 15.1 g/dL (13.0-16.5); Lymphocyte # 1.39 X10^3/ul (0.83-4.51); Lymphocyte % 22.4 % (19-41); Mean Corp Hgb Conc 34.7 g/dL (32-36); Mean Corpuscular Hgb 32.1 pg (27.0-32.0); Mean Corpuscular Volume 92.4 fL (80-94); Mean Platelet Vol. 9.1 fl (6.2-12.0); Monocyte# 0.47 X10^3/uL; Monocyte% 7.6 % (0-10); NRBC Flagged by Analyzer 0 % (0-5); Neutrophil % 64.4 % (47-70); Platelet Count 183 K/mm3 (150-450); RBC Distribution Width SD 41.1 fl (35.1-43.9); Red Blood Count 4.71 M/mm3 (4.6-6.2); White Blood Count 6.2 K/mm3 (4.4-11.0)
[2022-07-31 10:16] LABS: ALB/GLOB Ratio 1.2 RATIO (0.9-2.4); AST(SGOT) 28 U/L (15-37); Alanine Aminotransfer ALT/SGPT 31 U/L (16-61); Albumin, Serum 3.7 g/dL (3.2-5.0); Alkaline Phosphatase 60 U/L (45-117); Anion Gap 2 (5-15); BUN 10 mg/dL (7-18); BUN/Creat Ratio 9.7 RATIO (10-20); Calcium,Total 9.4 mg/dL (8.5-10.1); Chloride 108 mmol/L (98-107); Creatinine, Serum 1.03 mg/dL (0.70-1.30); EST Glomerular Filtration Rate 78 mL/min (>60); Est Glom Filt Rate - Afr Amer 95 mL/min (>60); Glucose 101 mg/dL (74-106); Potassium 4.5 mmol/L (3.5-5.1); Protein, Total 6.7 g/dL (6.4-8.2); Sodium Level 141 mmol/L (136-145)
== END | disposition home or self-care (01) ==
LOC: LAB 09:05
PROVIDERS: PCP Internal Medicine; Referring Provider Dermatology; Visit Provider Dermatology
DX: L43.8 Other lichen planus (principal); H61.032 Chondritis of left external ear; L82.1 Other seborrheic keratosis; L81.4 Other melanin hyperpigmentation; D18.01 Hemangioma of skin and subcutaneous tissue; L57.8 Other skin changes due to chronic exposure to nonionizing radiation; D48.5 Neoplasm of uncertain behavior of skin; Z85.828 Personal history of other malignant neoplasm of skin; Z87.2 Personal history of diseases of the skin and subcutaneous tissue; Z79.01 Long term (current) use of anticoagulants
CPT/HCPCS: 36415; 80053; 85025; 85610

== ENCOUNTER → 2022-11-06 | Outpatient (CLI) | payer OTHER, SELFPAY ==
[2022-11-06 10:12] LABS: Prothrombin Time (Protime)PT. 13.1 SECONDS (11.7-14.9)
== END | disposition home or self-care (01) ==
LOC: LAB 09:33
PROVIDERS: PCP Internal Medicine; Referring Provider Nurse Practitioner Family; Visit Provider Nurse Practitioner Family
DX: Z79.01 Long term (current) use of anticoagulants (principal)
CPT/HCPCS: 36415; 85610

== ENCOUNTER → 2022-12-19 | Outpatient (CLI) | payer OTHER, SELFPAY ==
[2022-12-19 08:49] LABS: International Normalized Ratio 1.1; Prothrombin Time (Protime)PT. 13.6 SECONDS (11.7-14.9)
== END | disposition home or self-care (01) ==
LOC: LAB 07:26
PROVIDERS: PCP Internal Medicine; Referring Provider Nurse Practitioner Family; Visit Provider Nurse Practitioner Family
DX: Z79.01 Long term (current) use of anticoagulants (principal)
CPT/HCPCS: 36415; 85610

== ENCOUNTER → 2023-01-22 | Outpatient (CLI) | payer OTHER, SELFPAY ==
[2023-01-22 09:22] LABS: Absolute Lymphocyte Count 1.22 X10^3/uL (0.83-4.51); Absolute Neutrophil Count 2.7 X10^3/uL (2.0-7.7); Basophil# 0.03 X10^3/uL; Basophil% 0.7 % (0-1); Eosinophil# 0.15 X10^3/uL; Eosinophils% 3.3 % (0-5); Hematocrit 43.5 % (40-54); Hemoglobin 14.4 g/dL (13.0-16.5); Lymphocyte # 1.22 X10^3/ul (0.83-4.51); Lymphocyte % 26.9 % (19-41); Mean Corp Hgb Conc 33.1 g/dL (32-36); Mean Corpuscular Hgb 31.3 pg (27.0-32.0); Mean Corpuscular Volume 94.6 fL (80-94); Mean Platelet Vol. 9.8 fl (6.2-12.0); Monocyte# 0.39 X10^3/uL; Monocyte% 8.6 % (0-10); NRBC Flagged by Analyzer 0 % (0-5); Neutrophil # 2.74 X10^3/uL (2.7-7.7); Neutrophil % 60.3 % (47-70); Platelet Count 222 K/mm3 (150-450); RBC Distribution Width CV 12.4 % (11.6-14.6); RBC Distribution Width SD 42.7 fl (35.1-43.9); White Blood Count 4.5 K/mm3 (4.4-11.0)
[2023-01-22 09:55] LABS: ALB/GLOB Ratio 1.1 RATIO (0.9-2.4); AST(SGOT) 32 U/L (15-37); Alanine Aminotransfer ALT/SGPT 35 U/L (16-61); Albumin, Serum 3.4 g/dL (3.2-5.0); Alkaline Phosphatase 67 U/L (45-117); Anion Gap 2 (5-15); BUN 13 mg/dL (7-18); BUN/Creat Ratio 12.6 RATIO (10-20); Calcium,Total 9.1 mg/dL (8.5-10.1); Chloride 108 mmol/L (98-107); Creatinine, Serum 1.03 mg/dL (0.70-1.30); EST Glomerular Filtration Rate 78 mL/min (>60); Est Glom Filt Rate - Afr Amer 95 mL/min (>60); Glucose 90 mg/dL (74-106); Potassium 4.3 mmol/L (3.5-5.1); Protein, Total 6.4 g/dL (6.4-8.2); Sodium Level 141 mmol/L (136-145)
[2023-01-22 09:56] LABS: Prothrombin Time (Protime)PT. 13.1 SECONDS (11.7-14.9)
== END | disposition home or self-care (01) ==
LOC: LAB 08:28
PROVIDERS: PCP Internal Medicine; Visit Provider Dermatology
DX: L43.8 Other lichen planus (principal); Z79.01 Long term (current) use of anticoagulants; R23.3 Spontaneous ecchymoses
CPT/HCPCS: 36415; 80053; 85025; 85610

== ENCOUNTER → 2023-03-11 | Outpatient (CLI) | payer OTHER, SELFPAY ==
[2023-03-11 10:09] LABS: Prothrombin Time (Protime)PT. 12.9 SECONDS (11.7-14.9)
== END | disposition home or self-care (01) ==
LOC: LAB 09:07
PROVIDERS: PCP Internal Medicine; Referring Provider Nurse Practitioner Acute Care; Visit Provider Nurse Practitioner Acute Care
DX: Z79.01 Long term (current) use of anticoagulants (principal)
CPT/HCPCS: 36415; 85610

== ENCOUNTER → 2023-06-11 | Outpatient (CLI) | payer OTHER, SELFPAY | END | disposition home or self-care (01) | LOC: LAB 09:09 | PROVIDERS: PCP Internal Medicine; Referring Provider Nurse Practitioner Acute Care; Visit Provider Nurse Practitioner Acute Care | DX: Z79.01 Long term (current) use of anticoagulants (principal) | CPT/HCPCS: 36415; 85610 ==

== ENCOUNTER → 2023-07-23 | Outpatient (CLI) | payer OTHER, SELFPAY ==
[2023-07-23 09:46] LABS: Prothrombin Time (Protime)PT. 13.2 SECONDS (11.7-14.9)
== END | disposition home or self-care (01) ==
LOC: LAB 08:46
PROVIDERS: PCP Internal Medicine; Referring Provider Nurse Practitioner Acute Care; Visit Provider Nurse Practitioner Acute Care
DX: Z79.01 Long term (current) use of anticoagulants (principal)
CPT/HCPCS: 36415; 85610

== ENCOUNTER → 2023-09-03 | Outpatient (CLI) | payer OTHER, SELFPAY ==
[2023-09-03 09:59] LABS: Absolute Lymphocyte Count 1.33 X10^3/uL (0.83-4.51); Absolute Neutrophil Count 3.9 X10^3/uL (2.0-7.7); Basophil# 0.03 X10^3/uL; Basophil% 0.5 % (0-1); Eosinophil# 0.13 X10^3/uL; Eosinophils% 2.2 % (0-5); Hematocrit 44.2 % (40-54); Lymphocyte # 1.33 X10^3/ul (0.83-4.51); Lymphocyte % 22.4 % (19-41); Mean Corp Hgb Conc 33.9 g/dL (32-36); Mean Corpuscular Volume 94.2 fL (80-94); Mean Platelet Vol. 9.9 fl (6.2-12.0); Monocyte# 0.58 X10^3/uL; Monocyte% 9.8 % (0-10); NRBC Flagged by Analyzer 0 % (0-5); Neutrophil # 3.85 X10^3/uL (2.7-7.7); Neutrophil % 64.9 % (47-70); Platelet Count 229 K/mm3 (150-450); RBC Distribution Width SD 41.2 fl (35.1-43.9); Red Blood Count 4.69 M/mm3 (4.6-6.2); White Blood Count 5.9 K/mm3 (4.4-11.0)
[2023-09-03 10:20] LABS: Prothrombin Time (Protime)PT. 13.4 SECONDS (11.7-14.9)
[2023-09-03 10:36] LABS: ALB/GLOB Ratio 0.9 RATIO (0.9-2.4); AST(SGOT) 30 U/L (15-37); Alanine Aminotransfer ALT/SGPT 32 U/L (16-61); Albumin, Serum 3.2 g/dL (3.2-5.0); Alkaline Phosphatase 69 U/L (45-117); Anion Gap 1 (5-15); BUN 13 mg/dL (7-18); BUN/Creat Ratio 12.4 RATIO (10-20); Calcium,Total 9.2 mg/dL (8.5-10.1); Chloride 107 mmol/L (98-107); Creatinine, Serum 1.05 mg/dL (0.70-1.30); EST Glomerular Filtration Rate 76 mL/min (>60); Est Glom Filt Rate - Afr Amer 93 mL/min (>60); Globulin 3.4 g/dL (2.2-4.2); Glucose 89 mg/dL (74-106); Potassium 4.2 mmol/L (3.5-5.1); Protein, Total 6.6 g/dL (6.4-8.2); Sodium Level 139 mmol/L (136-145)
== END | disposition home or self-care (01) ==
LOC: LAB 09:03
PROVIDERS: PCP Internal Medicine; Referring Provider Dermatology; Visit Provider Dermatology
DX: L43.8 Other lichen planus (principal)
CPT/HCPCS: 36415; 80053; 85025; 85610

== ENCOUNTER → 2023-11-19 | Outpatient (CLI) | payer OTHER, SELFPAY ==
[2023-11-19 10:21] LABS: Prothrombin Time (Protime)PT. 12.8 SECONDS (11.7-14.9)
== END | disposition home or self-care (01) ==
LOC: LAB 09:33
PROVIDERS: PCP Internal Medicine; Referring Provider Clinical Nurse Specialist Adult Health; Visit Provider Clinical Nurse Specialist Adult Health
DX: Z79.01 Long term (current) use of anticoagulants (principal)
CPT/HCPCS: 36415; 85610

== ENCOUNTER → 2023-12-03 | Outpatient (CLI) | payer OTHER, SELFPAY ==
--- NOTE | 2023-12-03 10:50 | BD_ITS ---
STUDY: DUAL ENERGY X-RAY ABSORPTIOMETRY / DXA REASON FOR EXAM: Male, 58 years old. Z79.52 TECHNIQUE: Bone Mineral Density (BMD) measurements of lumbar spine and bilateral hips were obtained. COMPARISON: Comparison is made with prior study dated May 09, 2021. FINDINGS: Lumbar Spine (L1-L4): g/cm2 (0.797) / T-score (-2.7) / Z-score (-2.0) Findings are suggestive of osteoporosis with a high fracture risk. Left Femur Total: g/cm2 (0.776) / T-score (-1.7) / Z-score (-1.2) Left Femoral Neck: g/cm2 (0.733) / T-score (-1.4) / Z-score (-0.5) Right Femur Total: g/cm2 (0.741) / T-score (-1.9) / Z-score (-1.5) Right Femoral Neck: g/cm2 (0.738) / T-score (-1.4) / Z-score (-0.5) The T-Scores on the most recent prior examination were: Lumbar Spine (L1-L4): There has been worsening of bone density since the previous examination. Left Femur Total: which represents a worsening of 1%. Right Femur Total: which represents a worsening of 4.1%. BD/Dexa Bone Density Study IMPRESSION: The patient is considered osteoporotic as outlined below according to World Luis Daniel Organization (WHO) criteria with a high fracture risk. There has been worsening of bone density since the previous examination. Reference Information: The T-score is the number of standard deviations above or below the standard which is normal for young adults at their peak bone mineral density. The World Health Organization (WHO) interprets the T-scores as follows: Above -1 Normal bone density Between -1 and -2.5 Osteopenia Equal to / or below -2.5 Osteoporosis As a practical clinical guideline, osteopenia may be graded as follows: Mild -1 through -1.5 Moderate -1.6 through -2.0 Severe -2.1 through -2.4 The Z-score is the number of standard deviations above or below age-matched controls. A Z-score of less than -1.5 would be considered abnormal. References: 1. NIH Osteoporosis and Related Bone Diseases www osteo.org 2. International Society for Clinical Densitometry www iscd.org 3. National Osteoporosis Foundation www nof.org Electronically Signed: Lior Nguyen MD at 9:47 EDT ,
== END | disposition home or self-care (01) ==
LOC: OPBD 10:49
PROVIDERS: PCP Internal Medicine; Visit Provider Internal Medicine
DX: M81.0 Age-related osteoporosis without current pathological fracture (principal); Z79.52 Long term (current) use of systemic steroids
CPT/HCPCS: 77080

== ENCOUNTER 2024-02-12 19:40 | Emergency (ER) | payer OTHER, SELFPAY ==
[2024-02-12 19:41] VITALS: BP 133/97; PULSE 87; RESP 16; TEMP 36.6; O2SAT 98; BMI 24.0
--- NOTE | 2024-02-12 21:27 | EDS_ITS ---
HPI History of Present Illness Chief Complaint: Other, Pain/Inj Detail of Chief Complaint: Tongue laceration Informant: patient Narrative Narrative: Patient presents the emergency department complaint of tongue laceration. Patient states that he was eating salad around 11:00 today and bit his tongue. Patient on Coumadin. Patient having hard time get the bleeding to stop. He has passed some clots from his mouth. At some point felt like he part of his tongue was hanging on the back of his throat. Patient on Coumadin for history of factor V Leiden. Patient is scheduled to have a procedure and he was given discontinue his Coumadin in the couple of days for the procedure. His last INR was about a week ago and he recalls it being 2.9. [facility] Medical History (Updated 02/12/24 @ 21:[address] Madina Sood, ) DVT (deep venous thrombosis) Pulmonary emboli Seasonal allergies Factor 5 Leiden mutation, heterozygous Arthritis Back pain TBI (traumatic brain injury) Seizures Knee pain Shoulder pain Home Medications ?Medication ?Instructions ?Recorded ?Last Taken ?Type dextroamphetamine-amphetamine 10 10 mg PO TID 05/14/15 Unknown History mg tablet warfarin 4 mg tablet 4 mg PO SUMOWEFR 05/14/15 Unknown History warfarin 1 mg tablet 3.5 mg PO TUTHSA 30 days ##30 12/24/17 Unknown History hydrocodone-acetaminophen 5-325mg 1 tab PO Q4H PRN PRN Pain #30 tabs 03/21/19 Unknown History 5mg-325mg Allergy/AdvReac Type Severity Reaction Status Date / Time Penicillins Allergy Other Verified 02/12/24 19:43 Family History Other DVT (deep venous thrombosis) Factor 5 Leiden mutation, heterozygous Surgical History History of back surgery History of knee surgery History of shoulder surgery Social History (Updated 05/07/19 @ 10:17 by David DOSS, PA) Smoking Status: Never smoker alcohol intake: never ROS ROS ED Review of Systems ROS Unobtainable: other Constitutional Constitutional ED: Reports lethargy; Denies chills, fever(s), sweats or weight loss Eyes Eyes: Denies blurry vision, change in vision or diplopia ENT ENT ED: Reports other Details: Tongue laceration ; Denies rhinorrhea or sore throat Cardiovascular Cardiovascular: Denies chest pain, orthopnea or racing heartbeat Respiratory/Chest Respiratory/Chest: Denies cough, dyspnea, dyspnea on exertion, orthopnea or sputum Gastrointestinal Gastrointestinal: Denies abdominal pain, diarrhea, nausea or vomiting Genitourinary Genitourinary ED: Denies dysuria, hematuria or urinary frequency Musculoskeletal Musculoskeletal: Denies arthralgias, back pain, myalgias or neck pain Integumentary Denies abscess, Abrasions or rash Neurologic Neurologic: Denies headache(s) or weakness Psychiatric Psychiatric: Denies anxiety, depression or suicidal thoughts Endocrine Endocrinology: Denies polydipsia, polyphagia or polyuria Hematologic/Lymphatic Hematologic/Lymphatic: Denies easy bleeding, easy bruising or lymphadenopathy Allergic/Immunologic Allergic/Immunologic ED: Denies mouth swelling, tongue swelling or urticaria EXAM Physical Exam Const Vital Signs: 02/12/24 19:41 Temperature 97.8 F Temperature Source Temporal Pulse Rate 87 Respiratory Rate 16 Blood Pressure 133/97 H Blood Pressure Mean 109 Pulse Ox 98 Oxygen Delivery Method Room Air Positive well nourished and well developed General Appearance ED: well developed and NAD HEENT Reports TM's clear and moist mucous membranes HEENT Narrative: Tongue-chest to the right side of the midline of the mid tongue there is a 8 mm laceration. Initially there was no active bleeding and there was a clot prese nt. As I was speaking to him reevaluated because he felt like it started bleeding again he had small amount of blood oozing from the laceration. There is no large deficit noted or large flap. normocephalic and atraumatic; Negative for trauma or tenderness Tympanic Membrane ED: Yes TM's clear Eyes PERRL and EOMs intact bilaterally General Eye ED: Negative for pale conjunctiva or scleral icterus Neck no lymphadenopathy, supple and no JVD General: Negative for tenderness Chest Wall inspection of chest normal and palpation of chest normal Chest: Negative for tenderness Resp normal respiratory effort and clear to auscultation bilaterally Effort and Inspection: Negative for respiratory distress or pain with movement Auscultation: Negative for rhonchi, wheezes or diminished lung sounds Cardio regular rate, regular rhythm, S1 normal heart sound, S2 normal heart sound and no murmurs Peripheral Pulses: pulses 2+ throughout GI normal to inspection, nondistended, normoactive bowel sounds, soft to palpation, non-tender, non-distended and no masses Back/Spine no CVA tenderness and no thoracic nor lumbar tenderness Extremity normal to inspection General Extremety ED: Negative for edema General Extremity: Negative for edema Neuro oriented x3, CN's II-XII intact bilaterally, no sensory deficits noted and gait normal Sensorium / Orientation: awake, alert, oriented to person, oriented to place and oriented to time Motor Exam: strength 5/5 throughout and strength abnormal Psych mental status grossly normal Skin no rashes or lesions noted and no wounds PROC Procedures Lacerations Tongue laceration: Length: 0.28 in Depth: Muscle Shape: Linear Laceration repair: Irrigated and Lidocaine with epi Irrigated (ml): 50 Number of Sutures/[place]: 1 Suture Information: Vicryl, Simple and 5-0 MDM MDM MDM Narrative Medical decision making narrative: We will obtain a CBC and an INR. Will attempt to place 1 suture in the tongue to help with hemostasis. Will also inject with lidocaine with epinephrine. Please see procedure note for tongue suture repair. I did place one 5-0 Vicryl suture with good wound edge approximation. Initially he had good hemostasis and anesthesia with 1% lidocaine with epinephrine total of 1 cc used. CBC with differential obtained was normal. Patient's INR was 2.7. On repeat examination prior to discharge she has no further active bleeding. Patient advised on a soft diet for the next 24 to 36 hours. Lab Data Attestation: I reviewed the patient's lab results. Labs: Laboratory Results - last 24 hr 02/12/24 21:38 WBC 5.6 RBC 4.72 Hgb 14.5 Hct 44.4 MCV 94.1 H MCH 30.7 MCHC 32.7 RDW Std Deviation 41.5 RDW Coeff of Jazmin 11.9 Plt Count 173 MPV 9.7 Immature Gran % (Auto) 0.200 Neut % (Auto) 62.3 Lymph % (Auto) 20.8 [place] % (Auto) 10.1 H Eos % (Auto) 5.9 H Baso % (Auto) 0.7 Absolute Neuts (auto) 3.5 Absolute Lymphs (auto) 1.17 Nucleated RBC % 0 PT 28.2 H INR 2.7 Discharge Plan Triage Chief Complaint: Other, Pain/Inj ED Provider: Madina Sood Dx/Rx/DC Orders Clinical Impression: Tongue laceration Instructions: ED Laceration, Lip or Mouth Prescriptions: No Action warfarin 1 mg tablet 3.5 mg PO TUTHSA 30 Days Qty: 30 Patient Comments: TAKE 1 TABLET EVERY DAY DIRECTED hydrocodone-acetaminophen 5-325 mg tablet 1 tab PO Q4H PRN PRN (Reason: Pain) Qty: 30 dextroamphetamine-amphetamine 10 MG tablet 10 mg PO TID warfarin 4 MG tablet 4 mg PO SUMOWEFR Primary Care Provider: Luanne Ballard Referrals: Luanne Ballard MD [Primary Care Provider] - 3-5 Days Print Language: Kosovan Disposition Disposition: Home, Self Care
[2024-02-12 21:41] VITALS: BP 138/74; PULSE 76; RESP 18; O2SAT 98
[2024-02-12 21:49] LABS: Absolute Lymphocyte Count 1.17 X10^3/uL (0.83-4.51); Absolute Neutrophil Count 3.5 X10^3/uL (2.0-7.7); Basophil# 0.04 X10^3/uL; Basophil% 0.7 % (0-1); Eosinophil# 0.33 X10^3/uL; Eosinophils% 5.9 % (0-5); Hematocrit 44.4 % (40-54); Hemoglobin 14.5 g/dL (13.0-16.5); Lymphocyte # 1.17 X10^3/ul (0.83-4.51); Lymphocyte % 20.8 % (19-41); Mean Corp Hgb Conc 32.7 g/dL (32-36); Mean Corpuscular Hgb 30.7 pg (27.0-32.0); Mean Corpuscular Volume 94.1 fL (80-94); Mean Platelet Vol. 9.7 fl (6.2-12.0); Monocyte# 0.57 X10^3/uL; Monocyte% 10.1 % (0-10); NRBC Flagged by Analyzer 0 % (0-5); Neutrophil % 62.3 % (47-70); Platelet Count 173 K/mm3 (150-450); RBC Distribution Width CV 11.9 % (11.6-14.6); RBC Distribution Width SD 41.5 fl (35.1-43.9); Red Blood Count 4.72 M/mm3 (4.6-6.2); White Blood Count 5.6 K/mm3 (4.4-11.0)
[2024-02-12 22:06] LABS: International Normalized Ratio 2.7; Prothrombin Time (Protime)PT. 28.2 SECONDS (11.7-14.9)
[2024-02-12 22:22] VITALS: BP 147/68; PULSE 81; RESP 18; TEMP 36.6; O2SAT 97
[2024-02-12] MEDS: Lidocaine 1% /Epi 1:100 (20ml) 20 ML Vial INFILT (22:24)
== END 2024-02-12 22:26 | disposition home or self-care (01) ==
PROVIDERS: Emergency Provider Emergency Medicine; PCP Internal Medicine; Visit Provider Emergency Medicine
DX: S01.512A Laceration without foreign body of oral cavity, initial encounter (principal); Z79.01 Long term (current) use of anticoagulants; Z86.718 Personal history of other venous thrombosis and embolism; W26.8XXA Contact with other sharp object(s), not elsewhere classified, initial encounter
CPT/HCPCS: 41250; 85025; 85610; 99283; A4216

== ENCOUNTER → 2024-02-20 | Outpatient (CLI) | payer OTHER, SELFPAY ==
[2024-02-20 09:43] LABS: Absolute Lymphocyte Count 1.22 X10^3/uL (0.83-4.51); Absolute Neutrophil Count 2.6 X10^3/uL (2.0-7.7); Basophil# 0.03 X10^3/uL; Basophil% 0.6 % (0-1); Eosinophil# 0.35 X10^3/uL; Eosinophils% 7.5 % (0-5); Hematocrit 42.8 % (40-54); Lymphocyte # 1.22 X10^3/ul (0.83-4.51); Lymphocyte % 26.2 % (19-41); Mean Corp Hgb Conc 32.7 g/dL (32-36); Mean Corpuscular Volume 94.9 fL (80-94); Mean Platelet Vol. 9.7 fl (6.2-12.0); Monocyte% 10.7 % (0-10); NRBC Flagged by Analyzer 0 % (0-5); Neutrophil # 2.55 X10^3/uL (2.7-7.7); Neutrophil % 54.8 % (47-70); Platelet Count 197 K/mm3 (150-450); RBC Distribution Width CV 12.2 % (11.6-14.6); RBC Distribution Width SD 42.4 fl (35.1-43.9); Red Blood Count 4.51 M/mm3 (4.6-6.2); White Blood Count 4.7 K/mm3 (4.4-11.0)
[2024-02-20 10:26] LABS: International Normalized Ratio 1.2
[2024-02-20 10:29] LABS: ALB/GLOB Ratio 1.2 RATIO (0.9-2.4); AST(SGOT) 38 U/L (15-37); Alanine Aminotransfer ALT/SGPT 39 U/L (16-61); Albumin, Serum 3.5 g/dL (3.2-5.0); Alkaline Phosphatase 62 U/L (45-117); Anion Gap 5 (5-15); BUN 13 mg/dL (7-18); BUN/Creat Ratio 13.1 RATIO (10-20); Calcium,Total 9.3 mg/dL (8.5-10.1); Chloride 107 mmol/L (98-107); Creatinine, Serum 0.99 mg/dL (0.70-1.30); EST Glomerular Filtration Rate 81 mL/min (>60); Est Glom Filt Rate - Afr Amer 99 mL/min (>60); Globulin 2.8 g/dL (2.2-4.2); Glucose 103 mg/dL (74-106); Potassium 4.2 mmol/L (3.5-5.1); Protein, Total 6.3 g/dL (6.4-8.2); Sodium Level 141 mmol/L (136-145)
== END | disposition home or self-care (01) ==
PROVIDERS: PCP Internal Medicine; Referring Provider Clinical Nurse Specialist Adult Health; Visit Provider Clinical Nurse Specialist Adult Health
DX: Z01.818 Encounter for other preprocedural examination (principal); L43.8 Other lichen planus; Z79.899 Other long term (current) drug therapy
CPT/HCPCS: 36415; 80053; 85025; 85610

== ENCOUNTER → 2024-04-02 | Outpatient (CLI) | payer OTHER, SELFPAY ==
[2024-04-02 10:35] LABS: Prothrombin Time (Protime)PT. 13.6 SECONDS (11.7-14.9)
== END | disposition home or self-care (01) ==
LOC: LAB 09:56
PROVIDERS: PCP Internal Medicine; Referring Provider Clinical Nurse Specialist Adult Health; Visit Provider Clinical Nurse Specialist Adult Health
DX: Z01.812 Encounter for preprocedural laboratory examination (principal)
CPT/HCPCS: 36415; 85610

== ENCOUNTER → 2024-07-14 | Outpatient (CLI) | payer OTHER, SELFPAY ==
[2024-07-14 10:54] LABS: International Normalized Ratio 1.1; Prothrombin Time (Protime)PT. 13.9 SECONDS (11.7-14.9)
== END | disposition home or self-care (01) ==
LOC: LAB 09:17
PROVIDERS: PCP Internal Medicine; Referring Provider Clinical Nurse Specialist Adult Health; Visit Provider Clinical Nurse Specialist Adult Health
DX: Z01.812 Encounter for preprocedural laboratory examination (principal); Z79.01 Long term (current) use of anticoagulants
CPT/HCPCS: 36415; 85610

== ENCOUNTER 2024-09-16 13:47 | Emergency (ER) | payer OTHER, SELFPAY ==
[2024-09-16 13:47] VITALS: BP 166/98; PULSE 100; RESP 20; TEMP 36.1; O2SAT 98; BMI 25.4
--- NOTE | 2024-09-16 14:13 | RAD_ITS ---
STUDY: X-RAY - LEFT HAND REASON FOR EXAM: Male, 59 years old. Finger trauma 3-5 TECHNIQUE: 3 view(s) of the hand. COMPARISON: None. FINDINGS: Normal radiocarpal articulation. Normal distal radioulnar joint. Normal visualized carpal bones. Normal carpal articulations Normal carpometacarpal articulation of the thumb. Normal second through fifth carpometacarpal joints. Normal metacarpi. Normal metacarpophalangeal joint of the thumb. Normal interphalangeal joint of the thumb. Normal proximal and distal phalanges of the thumb. Normal metacarpophalangeal joints of the second through fifth fingers. Normal proximal and distal interphalangeal joints of the second through fifth fingers. Nondisplaced transverse fracture of the tuft of the distal phalanx of the fourth digit. Soft tissue swelling. RAD/Hand Min 3 Views IMPRESSION: Nondisplaced transverse fracture of the tuft of the distal phalanx of the fourth digit. Electronically Signed: Lior Nguyen MD at 14:59 EST ,
[2024-09-16] MEDS: Morphine 4 MG/ML Syringe IV ×2 (14:36→18:13)
[2024-09-16] MEDS: Ondansetron 4 MG/2 ML Vial IV (14:36)
[2024-09-16 14:47] LABS: Hematocrit 40.9 % (40-54); Hemoglobin 14.6 g/dL (13.0-16.5); Mean Corp Hgb Conc 35.7 g/dL (32-36); Mean Corpuscular Hgb 31.6 pg (27.0-32.0); Mean Corpuscular Volume 88.5 fL (80-94); Mean Platelet Vol. 9.7 fl (6.2-12.0); Platelet Count 186 K/mm3 (150-450); RBC Distribution Width CV 12.2 % (11.6-14.6); RBC Distribution Width SD 39.8 fl (35.1-43.9); Red Blood Count 4.62 M/mm3 (4.6-6.2); White Blood Count 5.6 K/mm3 (4.4-11.0)
--- NOTE | 2024-09-16 14:49 | EDS_ITS ---
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 Patient was at work when he somehow tripped and his hand went into the belt of machine. He had injury to his left third fourth and fifth fingers, most pronounced to the fourth finger. He states the nail was ripped off he does not know where it went. He is having significant pain of the fourth finger as well as some mild pain of the third finger underneath the nail. He states that feels like it is throbbing. He notes his last INR was therapeutic 1 week ago. He is right-hand dominant. Denies any numbness or tingling. Is having a hard time moving his fourth finger but is not sure if it is because of pain. Thinks that his last tetanus was within the last 5 years but is not sure and will try to find out from his primary care doctor. Denies any other injuries. Did not hit his head. No other complaints or concerns at this time. Tetanus Immunization: Unknown [facility] Medical History DVT (deep venous thrombosis) Pulmonary emboli Seasonal allergies Factor 5 Leiden mutation, heterozygous Arthritis Back pain TBI (traumatic brain injury) Seizures Knee pain Shoulder pain Home Medications ?Medication ?Instructions ?Recorded ?Last Taken ?Type dextroamphetamine-amphetamine 10 10 mg PO TID 05/14/15 Unknown History mg tablet warfarin 4 mg tablet 4 mg PO SUMOWEFR 05/14/15 Unknown History warfarin 1 mg tablet 3.5 mg PO TUTHSA 30 days ##30 12/24/17 Unknown History hydrocodone-acetaminophen 5-325mg 1 tab PO Q4H PRN PRN Pain #30 tabs 03/21/19 Unknown History 5mg-325mg cephalexin 500 mg capsule 500 mg PO Q8H 5 days #15 caps 09/16/24 Unknown Rx oxycodone-acetaminophen 5 mg-325 1 tab PO Q6H PRN PRN Pain 3 days 09/16/24 Unknown Rx mg tablet #12 TABLETS Allergy/AdvReac Type Severity Reaction Status Date / Time Penicillins Allergy Other Verified 09/16/24 13:48 Family History Other DVT (deep venous thrombosis) Factor 5 Leiden mutation, heterozygous Surgical History History of back surgery History of knee surgery History of shoulder surgery Social History Smoking Status: Never smoker alcohol intake: never ROS ROS ED Constitutional Constitutional ED: Denies chills or fever(s) Musculoskeletal Musculoskeletal: Reports other Details: left finger pain- # 3-5 Integumentary Reports other Details: wounds to left 3rd and 5th fingers, nail avulsion of the 4th finger Neurologic Neurologic: Denies paresthesias or weakness Psychiatric Psychiatric: Denies anxiety Hematologic/Lymphatic Hematologic/Lymphatic: Reports easy bleeding, easy bruising and other Details: on Coumadin EXAM Physical Exam Const Vital Signs: 09/16/24 13:47 Temperature 97 F L Temperature Source Temporal Pulse Rate 100 Respiratory Rate 20 H Blood Pressure 166/98 H Blood Pressure Mean 120 Pulse Ox 98 Oxygen Delivery Method Room Air Positive well nourished and well developed General Appearance ED: well developed and NAD HEENT Reports moist mucous membranes normocephalic and atraumatic Eyes PERRL Neck full ROM and supple Chest Wall inspection of chest normal Resp normal respiratory effort and clear to auscultation bilaterally Cardio regular rate and regular rhythm Cardio Narrative: 2+ radial pulses Extremity Extremity Narrative: Tenderness to palpation of the distal phalanx of the left 3rd through 5th fingers. Patient has preserved range of motion with flexion extension of the third and fifth fingers. He has difficulty with flexion of the fourth finger at the middle and distal phalanges however it is not clear if this is due to pain or to deficit. Normal extension in all 3 fingers. Neuro oriented x3, moves all extremities, no focal motor deficits and no sensory deficits noted Psych mental status grossly normal Mood & Affect: anxious Skin Skin Narrative: Maceration and avulsion of the left fourth fingernail with maceration of the pad of the finger. Patient has less than 25% subungual hematoma at the base of the left third fingernail with a very small abrasion lateral to that. There is some bruising noted to the pad of the finger. No abrasion or skin injury visualized on the left fifth finger. MDM MDM MDM Narrative Medical decision making narrative: Patient is evaluated for injury to his left third and fourth fingers. Patient has significant injury to the distal aspect of the left fourth finger with avulsion of the nail. There is some slight bony exposure. Patient is given IV Rocephin in the ER (is allergic to penicillins as it caused him to lose his sight temporarily) an x-ray is obtained. X-ray viewed by myself as well as radiology does show a tuft fracture of the distal fourth phalanx. This is consistent with his injury. I spoke with Dr. Cordero, hand surgery. He recommends splinting the nail fold and close outpatient follow-up. I will start the patient on Keflex. Patient is continued venous oozing/bleeding which is difficult to control. Direct pressure is held for some time with no relief. Gelfoam applied with continued bleeding. Ultimately approximately 0.3 cc of local injection of lidocaine with epinephrine applied to get the bleeding to stop. Surgicel then wrapped around and a compressive dressing was placed. Patient does appear to be developing a subungual hematoma at the base of the third finger. Trepanation was performed but no blood is obtained. Patient's INR is therapeutic at 2.5. He is on it for history of DVT but his last clotting events was over 10 years ago. He will hold his Coumadin tonight and take half dose tomorrow given his bleeding. He will follow-up closely with hand. Is given signs and symptoms of infection and return precautions. Is placed in modified ulnar gutter splint (short) for further protection of the fingers. While in the ER patient is given 2 doses of morphine for pain control. Lab Data Labs: Laboratory Results - last 24 hr 09/16/24 14:39 WBC 5.6 RBC 4.62 Hgb 14.6 Hct 40.9 MCV 88.5 MCH 31.6 MCHC 35.7 RDW Std Deviation 39.8 RDW Coeff of Jazmin 12.2 Plt Count 186 MPV 9.7 Procedures Lacerations left 4th finger : Length: 0.2 in Depth: Skin Shape: Linear Prep: Shure-Clens Laceration repair: Digital block Irrigated (ml): 500 Number of Sutures/Helga: 2 Suture Information: Vicryl and 4-0 Comment: 2 simple interrupted sutures placed at the edges of the nails for better wound edge approximation. Nailbed is splinted using cut piece of aluminum from suture kit. Was first soaked in Betadine and then allowed to dry to sterilize. It was then sutured in place. 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 Instructions: ED Open Hand Fracture (Adult), ED Laceration Extremity Prescriptions: New cephalexin 500 mg capsule 500 mg PO Q8H 5 Days Qty: 15 0RF oxycodone-acetaminophen 5-325 mg tablet 1 tab PO Q6H PRN PRN (Reason: Pain) 3 Days Qty: 12 0RF No Action warfarin 1 mg tablet 3.5 mg PO TUTHSA 30 Days Qty: 30 Patient Comments: TAKE 1 TABLET EVERY DAY DIRECTED hydrocodone-acetaminophen 5-325 mg tablet 1 tab PO Q4H PRN PRN (Reason: Pain) Qty: 30 dextroamphetamine-amphetamine 10 MG tablet 10 mg PO TID warfarin 4 MG tablet 4 mg PO SUMOWEFR Primary Care Provider: Luanne Ballard Referrals: Luanne Ballard MD [Primary Care Provider] - Clifford Cordero MD [Med Staff - Active Staff] - 2 Days for wound check Activity Restrictions/Additional Instructions: Keep the bandage on until you follow-up with plastic surgery. Apply direct pressure if you start bleeding again. He may return to the emergency room. I do recommend holding your Coumadin tonight and taking a half dose tomorrow. Your INR was therapeutic today at 2.5. Your blood count stayed stable in the emergency room. You have been prescribed pain medicine. You have also prescribed antibiotic to help prevent associated infection given the nature of your wound. Print Language: New Zealander Disposition Disposition: Home, Self Care
[2024-09-16 14:58] LABS: International Normalized Ratio 2.5; Prothrombin Time (Protime)PT. 27.3 SECONDS (11.7-14.9)
[2024-09-16] MEDS: Diphth,Pertuss(Acell),Tet Vac 0.5 ML Vial IM (15:33)
[2024-09-16] MEDS: Lidocaine 1% (20 ml mdv) 20 ML Vial 10 ML INFILT (15:45)
[2024-09-16 16:00] VITALS: BP 148/89; PULSE 75; RESP 18; O2SAT 98
[2024-09-16] MEDS: Ceftriaxone 1 GM/50 ML BAG IV (17:06)
[2024-09-16 18:00] VITALS: BP 137/87; PULSE 75; RESP 18; O2SAT 98
[2024-09-16] MEDS: Lidocaine 1% /Epi 1:100 (20ml) 20 ML Vial 10 ML INFILT (18:14)
[2024-09-16 19:16] VITALS: BP 138/80; PULSE 60; RESP 16; O2SAT 97
[2024-09-16 19:47] LABS: Hematocrit 43.3 % (40-54); Hemoglobin 14.6 g/dL (13.0-16.5); Mean Corp Hgb Conc 33.7 g/dL (32-36); Mean Corpuscular Volume 91.9 fL (80-94); Mean Platelet Vol. 9.8 fl (6.2-12.0); Platelet Count 199 K/mm3 (150-450); RBC Distribution Width SD 40.6 fl (35.1-43.9); Red Blood Count 4.71 M/mm3 (4.6-6.2); White Blood Count 5.6 K/mm3 (4.4-11.0)
[2024-09-16 20:53] VITALS: BP 138/80; PULSE 65; RESP 16; TEMP 36.7; O2SAT 97
== END 2024-09-16 21:16 | disposition home or self-care (01) ==
PROVIDERS: Emergency Provider Emergency Medicine; PCP Internal Medicine; Visit Provider Emergency Medicine
DX: S62.635B Displaced fracture of distal phalanx of left ring finger, initial encounter for open fracture (principal); S61.305A Unspecified open wound of left ring finger with damage to nail, initial encounter; S60.032A Contusion of left middle finger without damage to nail, initial encounter; W31.9XXA Contact with unspecified machinery, initial encounter; Y99.0 Civilian activity done for income or pay; D68.51 Activated protein C resistance; Z88.0 Allergy status to penicillin; Z86.73 Personal history of transient ischemic attack (TIA), and cerebral infarction without residual deficits; Z79.01 Long term (current) use of anticoagulants; Z86.711 Personal history of pulmonary embolism; Z86.718 Personal history of other venous thrombosis and embolism; Z23 Encounter for immunization
CPT/HCPCS: 29125; 11760; 73130; 85027; 85610; 90471; 90715; 96365; 96375; 96376; 99283; A4216; J2405

== ENCOUNTER 2024-09-30 12:27 | Day surgery (SDC) | payer OTHER, SELFPAY ==
[2024-09-30] VITALS (9 sets, daily range): BP systolic 101–124; BP diastolic 68–89; PULSE 61–76; RESP 16–20; TEMP 36.3–36.7; O2SAT 94–100; BMI 24.4
--- NOTE | 2024-09-30 | BON_PTH ---
PATIENT: MADELAINE JUARES LOC: [facility] [place] U#:[id number] AGE/SX: 59/M ROOM: RE09/30/[address]: Dr. Clifford Cordero MD : 1965 BED: DIS: 09/30/2024 SPEC #: [id number] RECD: 09/30/24 14:31 STATUS: NATHAN BULLOCKLibia #: [id number] LISANDRO: 09/30/24 00:[address]: Clifford Cordero DEPT: SURGICAL PATHOLOGY RECD BY: Grace Olson ENTERED: 10/01/24 10:39 SP TYPE: Bone OTHR DR: Dr. Luanne Ballard MD Tissues: Finger, NOS Procedures: Decalcification bone/plaque Surgery Specimen Level IV HEADER OPERATION: Revision amputation of left ring finger PRE-OP DIAGNOSIS: Open fracture of tuft of distal phalanx of finger TISSUE SUBMITTED: Amputated finger and bone, left ring finger MICROSCOPIC DIAGNOSIS Left ring finger bone, amputation: A piece of bone with attached soft tissue with callus formation, clinically fractured finger. . 10/02/2024 MICROSCOPIC DESCRIPTION Slides are reviewed. GROSS DESCRIPTION Received in fixative is one container labeled with the patient's name and designated Amputated finger and bone, left ring finger. The specimen consists of a piece of bone with soft tissue measuring 2 x 1 x 0.3cm. The entire specimen is submitted in one cassette after decalcification. 10/01/2024 TC:5 CPT:23389,00017
--- NOTE | 2024-09-30 13:13 | PRE.ANES_ITS ---
ASA Classification* ASA Classification ASA Classification: 2 Assessment & Plan Anesthesia* Anesthesia Assessment Anesthesia Assessment: Discussed sedation and/or anesthesia options, risks, benefits, and alternatives with patient/parents/legal guardian/POA. Questions invited. The patient/parents/legal guardian/POA seems to understand and agrees to proceed with anesthesia plan. Reviewed the physical assessment, medical history, allergy history and patient home medications list prior to surgery/procedure/anesthetic and documented any changes. Performed airway and anesthesia risk assessments. Procedural Plan Add'l anesthesia plan details: MAC with Local block by surgeon with back up of general anesthesia Anesthesia Type Anesthesia Type: MAC History Source History Obtained from:: Patient and Chart Anesthesia Focused Assessment* Temperature: 97.7 F Pulse Rate: 76 Blood Pressure: 124/89 Respiratory Rate: 16 Pulse Ox: 100 Oxygen Delivery Method: Room Air Airway Assessment Mouth opens: >3 cm Mallampati Score: II Focused Labs Anesthesia Preop lab: CBC WBC 5.6 K/mm3 (4.4-11.0) 09/16/24 19:13 RBC 4.71 M/mm3 (4.6-6.2) 09/16/24 19:13 Hgb 14.6 g/dL (13.0-16.5) 09/16/24 19:13 Hct 43.3 % (40-54) 09/16/24 19:13 Plt Count 199 K/mm3 (150-450) 09/16/24 19:13 CHEMISTRY Potassium 4.2 mmol/L (3.5-5.1) 02/20/24 09:10 Sodium 141 mmol/L (136-145) 02/20/24 09:10 BUN 13 mg/dL (7-18) 02/20/24 09:10 Creatinine 0.99 mg/dL (0.70-1.30) 02/20/24 09:10 Glucose 103 mg/dL (74-106) 02/20/24 09:10 COAG PT 27.3 SECONDS (11.7-14.9) H 09/16/24 14:39 Pre-Assessment Diagnosis/Proposed Procedure Planned Operative Procedure(s): REVISION AMPUTATION LEFT RIGHT FINGER Anesthesia History 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 When Was Last Pacemaker Check QUESTION #4 FULL TEXT: You/Your Family Experience fever (hyperthermia) with Anesthesia Last Oral Intake Last Oral intake: Last Oral Intake NPO since 20:00 09/30/24 12:50 Meds taken in AM with sips of No 09/30/24 12:50 water? 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 programmer Female No 09/29/24 15:30 HX of Motion Sickness Yes 09/29/24 15:30 HX of N/V After Surgery Yes 09/29/24 15:30 Non-Smoker Yes 09/29/24 15:30 Duration of Surgery greater Yes 09/29/24 15:30 than 60 minutes Number of Risk Factors 4 09/29/24 15:30 PONV Score Severe Risk 09/29/24 15:30 Height & Weight Height & Weight: Anesthesia: Height & Weight Height 5 ft 9 in 09/30/24 12:50 Weight: 75 kg 09/30/24 12:50 Body Mass Index (BMI) 24.4 09/30/24 12:50 Respiratory Assessment Respiratory Assessment - z os mainframe systems programmer: Respiratory Tract Infection Hx - z os mainframe 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 Has anyone observed you stop No 09/29/24 15:30 breathing during sleep? STOP Results Negative 09/29/24 15:30 QUESTION #5 FULL TEXT : Do you snore loudly (louder than talking or can be heard through closed doors)? 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 Specify any problems Hx of Preganancy in last 3 N/A 09/29/24 15:30 Months Nurse Filling Out Transfusion DSCHRIBER 09/29/24 15:30 & Questions: Date: 09/29/24 09/29/24 15:30 Time: 15:31 09/29/24 15:30 Patient unable to answer at this time (ie. 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: /Reproductive Hx- z os mainframe systems programmer Hx Now No 09/29/24 15:30 Gestational Age (in weeks): EDC: Hx Hx Para Hx Section SAB No 09/29/24 15:30 Active Medications Active Medications: Current Medications Generic Name Dose Route Start Last Admin Trade Name Freq PRN Reason Stop Dose Admin Clindamycin Phosphate 900 mg in 50 mls @ 75 mls/hr 09/30/24 14:50 Cleocin IV 09/30/24 15:29 PREOP ONE PFSH Medical History ADD (attention deficit disorder) Lichen planus Wears glasses History of steroid therapy Syncope Non-smoker Leg cramps History of pain when walking Cardiology follow-up encounter History of stress test Pain DVT (deep venous thrombosis) Factor 5 Leiden mutation, heterozygous Arthritis Back pain TBI (traumatic brain injury) Seizures Shoulder pain Home Medications ?Medication ?Instructions ?Recorded ?Last Taken ?Type dextroamphetamine-amphetamine 10 10 mg PO TID 05/14/15 09/29/24 History mg tablet warfarin 4 mg tablet 4 mg PO DAILY 05/14/15 09/29/24 History hydrocodone-acetaminophen 5-325mg 1 tablet PO Q4H PRN PRN Pain #30 03/21/19 09/29/24 History 5mg-325mg tabs oxycodone-acetaminophen 5 mg-325 1 tab PO Q6H PRN PRN Pain 3 days 09/16/24 09/29/24 Rx mg tablet #12 TABLETS hydroxychloroquine 200 mg tablet 200 mg PO BID 09/29/24 09/29/24 History meclizine 12.5 mg tablet 12.5 mg PO 4X/DAY PRN dizziness 09/29/24 Unknown History doxycycline monohydrate 100 mg 100 mg PO BID 3 days #6 caps 09/30/24 Unknown Rx capsule oxycodone 5 mg tablet 5 mg PO Q12H PRN pain 5 days #10 09/30/24 Unknown Rx tabs Allergy/AdvReac Type Severity Reaction Status Date / Time Penicillins Allergy Other Verified 09/30/24 12:47 Family History Other DVT (deep venous thrombosis) Factor 5 Leiden mutation, heterozygous Surgical History Hx of colonoscopy Hx of tonsillectomy History of knee surgery History of shoulder surgery Social History Smoking Status: Never smoker alcohol intake: never Review of Systems (Anesthesia) ROS Narrative System reviewed and no additional complaints, except as documented.
--- NOTE | 2024-09-30 13:21 | HP.PCM.SX_ITS ---
HPI - General HPI Narrative MADELAINE JUARES, is a 59 M who presents with left ring finger injury with minimal soft tissue over the bone of the distal phalanx. Has dessicated. I talked to him about options including debridement with wound care, debridement with flap or dermal substitute. He wanted revision amputation of the left ring finger and declined these other treatment options. He understands risks, benefits, and alteratives to the procedure. He understands loss of length will decrease hand function to some degree. I talked the patient extensively about the risks of surgery, including bleeding, infection, damage to surrounding structures, surgical site dehiscence and wound formation, need for wound care, need for repeat operations, failure to obtain the desired result, DVT/PE, and the risks of anesthesia including . The benefits and alternatives of this surgery were also discussed. All of their questions were answered, and they agreed to proceed with surgery. Current Encounter (DATE OF SURGERY H&P UPDATE): I saw and examined the patient this morning in pre-operative holding. We discussed risks and benefits of today's surgery and they would like to proceed. NO CHANGE in health history since last seen and evaluated. Ready to proceed with surgery. FOR[facility]LY [facility] Medical History ADD (attention deficit disorder) Lichen planus Wears glasses History of steroid therapy Syncope Non-smoker Leg cramps History of pain when walking Cardiology follow-up encounter History of stress test Pain DVT (deep venous thrombosis) Factor 5 Leiden mutation, heterozygous Arthritis Back pain TBI (traumatic brain injury) Seizures Shoulder pain Home Medications ?Medication ?Instructions ?Recorded ?Last Taken ?Type dextroamphetamine-amphetamine 10 10 mg PO TID 05/14/15 09/29/24 History mg tablet warfarin 4 mg tablet 4 mg PO DAILY 05/14/15 09/29/24 History hydrocodone-acetaminophen 5-325mg 1 tablet PO Q4H PRN PRN Pain #30 03/21/19 09/29/24 History 5mg-325mg tabs oxycodone-acetaminophen 5 mg-325 1 tab PO Q6H PRN PRN Pain 3 days 09/16/24 09/29/24 Rx mg tablet #12 TABLETS hydroxychloroquine 200 mg tablet 200 mg PO BID 09/29/24 09/29/24 History meclizine 12.5 mg tablet 12.5 mg PO 4X/DAY PRN dizziness 09/29/24 Unknown History doxycycline monohydrate 100 mg 100 mg PO BID 3 days #6 caps 09/30/24 Unknown Rx capsule oxycodone 5 mg tablet 5 mg PO Q12H PRN pain 5 days #10 09/30/24 Unknown Rx tabs Allergy/AdvReac Type Severity Reaction Status Date / Time Penicillins Allergy Other Verified 09/30/24 12:47 Family History Other DVT (deep venous thrombosis) Factor 5 Leiden mutation, heterozygous Surgical History Hx of colonoscopy Hx of tonsillectomy History of knee surgery History of shoulder surgery Social History Smoking Status: Never smoker alcohol intake: never Vital Signs Vital Signs Vital Signs: 09/30/24 12:50 09/30/24 12:50 09/30/24 13:19 Temperature 97.7 F L 97.7 F L Temperature Source Temporal Pulse Rate 76 76 Respiratory Rate 16 16 Respiratory Pattern Normal Blood Pressure 124/89 H 124/89 H Blood Pressure Mean 100 Blood Pressure Source Monitor Blood Pressure Position Semi-Fowlers Blood Pressure Location Left Arm Pulse Ox 100 100 Oxygen Delivery Method Room Air Room Air Weight Weight: 165 lb 5.547 oz Body Mass Index (BMI) 24.4 Physical Exam Narrative Left Upper Extremity Inspection: No scissoring or angulation. Left ring finger with nail and nail bed avulsion injury. There is desiccation of the soft tissue covering the bone with exposure of the tuft of the left ring finger bone at the level of the sterile matrix. No signs of proximal infection or any drainage Left long finger with holes in the plate from draining the subungual hematoma, healing. Motor: Able to bend and extend all MP, PIP, and DIP joints. Sensory: Intact to light touch on the radial and ulnar borders. Vascular: Finger tips are warm and well perfused with <2 second capillary refill. Assessment & Plan Assessment/Plan (1) Open fracture of tuft of distal phalanx of finger: PLAN: INTERVAL H&P PLAN, DATE OF SURGERY: We will proceed with surgery today.
[2024-09-30] MEDS: Clindamycin 900 MG/50 ML BAG 75 MG IV (13:44)
[2024-09-30] MEDS: Bupivacaine 0.25% 30 ML Vial (13:59)
[2024-09-30] MEDS: Lidocaine 1% (20 ml mdv) 20 ML Vial (13:59)
--- NOTE | 2024-09-30 14:32 | PCM.POST.ANE ---
Anesthesia: Postop Eval I Current Vital Signs Temperature: 98.1 F Pulse Rate: 67 Blood Pressure: 104/68 Respiratory Rate: 20 Pulse Ox: 97 Assessment Airway patent: Yes Spontaneous unlabored respirations: Yes nausea: No Vomiting: No Anesthesia Complication: No Fluid Hydration Crystalloid volume administer (ml): 20 Total IV fluid infused: 20 Progress Note Anesthesia document: Postop Eval 1 completed: Yes
--- NOTE | 2024-09-30 14:49 | POSTOPAN2_ITS ---
Anesthesia Postop Eval I Sum Postop Eval Completion status Anesthesia document: Postop Eval 1 completed: Yes Anesthesia Postop Eval I Summary Anesthesia Postop Eval I Summary: Anesthesia Postop Eval I: Assessment Summary Airway patent Yes 09/30/24 14:32 REFERRAL AND INFORMATION [email or web address] Spontaneous unlabored Yes 09/30/24 14:32 REFERRAL AND INFORMATION [email or web address] respirations Mental status nausea No 09/30/24 14:32 REFERRAL AND INFORMATION [email or web address] Vomiting No 09/30/24 14:32 REFERRAL AND INFORMATION [email or web address] Anesthesia Postop Eval I: Fluid Summary Crystalloid volume administer 20 09/30/24 14:32 REFERRAL AND INFORMATION [email or web address] (ml) Colloids volume administered ( ml) Blood Product volume administered (ml) Total IV fluid infused 20 09/30/24 14:32 REFERRAL AND INFORMATION [email or web address] Anesthesia Postop Eval I: Summary Notes Anesthesia Complication No 09/30/24 14:32 REFERRAL AND INFORMATION [email or web address] Anesthesia Complication Comment: Post-operative progress note Anesthesia: Postop Eval II Evaluation Mental status: Awake and Calm Pain Level: 0 nausea: No Vomiting: No Complications Anesthesia Complication: No
--- NOTE | 2024-09-30 14:49 | PCM.POSTANE2 ---
Anesthesia Postop Eval I Sum Postop Eval Completion status Anesthesia document: Postop Eval 1 completed: Yes Anesthesia Postop Eval I Summary Anesthesia Postop Eval I Summary: Anesthesia Postop Eval I: Assessment Summary Airway patent Yes 09/30/24 14:32 GELATIN [email or web address] Spontaneous unlabored Yes 09/30/24 14:32 GELATIN POWDER [email or web address] respirations Mental status nausea No 09/30/24 14:32 GELATIN POWDER [email or web address] Vomiting No 09/30/24 14:32 GELATIN [email or web address] [email or web address] Anesthesia Postop Eval I: Fluid Summary Crystalloid volume administer 20 09/30/24 14:32 GELATIN [email or web address] [email or web address] (ml) Colloids volume administered ( ml) Blood Product volume administered (ml) Total IV fluid infused 20 09/30/24 14:32 GELATIN [email or web address] [email or web address] Anesthesia Postop Eval I: Summary Notes Anesthesia Complication No 09/30/24 14:32 GELATIN [email or web address] [email or web address] Anesthesia Complication Comment: Post-operative progress note Anesthesia: Postop Eval II Evaluation Mental status: Awake and Calm Pain Level: 0 nausea: No Vomiting: No Complications Anesthesia Complication: No
--- NOTE | 2024-09-30 16:23 | OP.PCM_ITS ---
Operative Report (Standard) Operative Information Date of Procedure: 09/30/24 Pre-Operative Diagnosis: Left ring finger open tuft fracture with nailbed avulsion/soft tissue avulsion injury Post-Operative Diagnosis: Same Surgery/Procedure Performed: Revision amputation of the left ring finger through the distal phalanx (CPT: 51714) waiter/waitress formal: Yes Sweatband Cutting Machine Operator: Yamilex Franco Tasks completed by assistant reading teacher: Retracting Type of Anesthesia: MAC/Supplemental (8 cc of a 50/50 mixture of 1% lidocaine and 0.25% Marcaine ) RN Documented Start/Stop Times: Operation Date: 09/30/24 14:50 Case Time Into Pre-Op 09/30/24 12:37 Anesthesia Start 09/30/24 13:44 Into Room 09/30/24 13:44 Procedure Start 09/30/24 14:00 Procedure End 09/30/24 14:23 Anesthesia End 09/30/24 14:26 Out of Room 09/30/24 14:26 Into Recovery 09/30/24 14:28 Into Phase II Recovery 09/30/24 15:05 Out of Recovery 09/30/24 15:05 Procedure Start Time: 14:00 Procedure Stop Time: 14:23 Select all DRAINS/GRAFTS/IMPLANTS that apply: None Estimated Blood Loss: 20 cc Specimen collected: Yes Description of specimen(s) removed: Distal finger tip bone/nailbed for gross examination Description of surgery: Indications: Patient is a 59-year-old male who sustained an avulsion injury/open tuft fracture to his left ring finger. He has been doing wound care since the time of the injury for approximately 1.5 weeks, but the soft tissue over the bone is desiccated and there is bony exposure with no sterile matrix covering the area of bone where there was an open fracture. I talked him about many options including debridement with further wound care, flap reconstruction or dermal substitute reconstruction. His nailbed is severely injured and likely to have s evere scarring/deformity if it heals. Per our discussion and patient centered decision making, the patient desired revision amputation in an attempt to provide viable soft tissue over the distal phalanx with plan for obliteration of the nailbed/germinal and sterile matrix. Procedure details: Patient was correct identified in preoperative holding and taken back to the operating room he was administered some sedation. He was prepped and draped in sterile fashion and a digital block was performed with the above-noted concentration of local on the left ring finger. A turnicot was applied and care was taken to remove the turnicot at the end of the case. A timeout was performed. A 15 blade scalpel was then used to excise the entire left ring finger germinal matrix and sterile matrix as well as the fractured distal portion of the tuft. This was sent to pathology. A rongeur was used to trim back the left ring finger P3 bone to the proximal shaft and smooth out the edges. The turnicot was removed and hemostasis obtained with bipolar electrocautery. The left ring finger volar flap of fingertip tissue was rotated and advanced over the bone and sutured into place loosely with 3-0 nylon interrupted sutures. Xeroform Luz and Coban were applied. The patient tolerated the procedure well. Postoperative plan: Wound check in clinic in 2 days on 02 October 2024. Surgical Findings: Healthy left ring fingertip volar pulp tissue for revision amputation at the level of the proximal shaft of the distal phalanx. Complications Complications: No Admit VTE Documentation VTE Mechan Device Prophylaxis: SCD's
== END 2024-09-30 16:42 | disposition home or self-care (01) ==
LOC: SDC 12:28 → AC 12:30
PROVIDERS: PCP Internal Medicine; Referring Provider Surgery Plastic and Reconstructive Surgery; Visit Provider Surgery Plastic and Reconstructive Surgery
PROC: (CPT 26951; principal; 2024-09-30 14:35)
DX: S62.635B Displaced fracture of distal phalanx of left ring finger, initial encounter for open fracture (principal); X58.XXXA Exposure to other specified factors, initial encounter; F98.8 Other specified behavioral and emotional disorders with onset usually occurring in childhood and adolescence; D68.51 Activated protein C resistance; Z88.0 Allergy status to penicillin; Z79.01 Long term (current) use of anticoagulants; Z79.899 Other long term (current) drug therapy; Z86.718 Personal history of other venous thrombosis and embolism; Z87.820 Personal history of traumatic brain injury
CPT/HCPCS: 26951; 88305; 88311; A4216

== ENCOUNTER → 2024-10-22 | Outpatient (CLI) | payer OTHER, SELFPAY ==
[2024-10-22 10:29] LABS: Absolute Neutrophil Count 2.1 X10^3/uL (2.0-7.7); Basophil# 0.03 X10^3/uL; Basophil% 0.8 % (0-1); Eosinophil# 0.24 X10^3/uL; Eosinophils% 6.2 % (0-5); Hematocrit 43.6 % (40-54); Hemoglobin 14.5 g/dL (13.0-16.5); Lymphocyte % 25.8 % (19-41); Mean Corp Hgb Conc 33.3 g/dL (32-36); Mean Corpuscular Volume 93.2 fL (80-94); Mean Platelet Vol. 9.9 fl (6.2-12.0); Monocyte# 0.49 X10^3/uL; Monocyte% 12.7 % (0-10); NRBC Flagged by Analyzer 0 % (0-5); Neutrophil % 54.2 % (47-70); Platelet Count 190 K/mm3 (150-450); RBC Distribution Width CV 12.1 % (11.6-14.6); RBC Distribution Width SD 41.7 fl (35.1-43.9); Red Blood Count 4.68 M/mm3 (4.6-6.2); White Blood Count 3.9 K/mm3 (4.4-11.0)
[2024-10-22 10:38] LABS: Prothrombin Time (Protime)PT. 13.1 SECONDS (11.7-14.9)
[2024-10-22 11:04] LABS: ALB/GLOB Ratio 1.1 RATIO (0.9-2.4); AST(SGOT) 38 U/L (15-37); Alanine Aminotransfer ALT/SGPT 43 U/L (16-61); Albumin, Serum 3.5 g/dL (3.2-5.0); Alkaline Phosphatase 64 U/L (45-117); Anion Gap 4 (5-15); BUN 11 mg/dL (7-18); BUN/Creat Ratio 10.8 RATIO (10-20); Calcium,Total 9.3 mg/dL (8.5-10.1); Chloride 107 mmol/L (98-107); Creatinine, Serum 1.02 mg/dL (0.70-1.30); EST Glomerular Filtration Rate 79 mL/min (>60); Est Glom Filt Rate - Afr Amer 95 mL/min (>60); Globulin 3.1 g/dL (2.2-4.2); Glucose 114 mg/dL (74-106); Protein, Total 6.6 g/dL (6.4-8.2); Sodium Level 140 mmol/L (136-145)
== END | disposition home or self-care (01) ==
PROVIDERS: Clinical Nurse Specialist Adult Health; PCP Internal Medicine; Referring Provider Dermatology; Visit Provider Dermatology
DX: L43.8 Other lichen planus (principal); Z79.899 Other long term (current) drug therapy; Z79.01 Long term (current) use of anticoagulants
CPT/HCPCS: 36415; 80053; 85025; 85610

== ENCOUNTER 2024-12-01 09:00 | Outpatient (RCR) | payer OTHER, SELFPAY ==
--- NOTE | 2024-10-29 17:07 | HP.OTEVAL ---
Patient's Visit Information Visit Information Visit Information: MADELAINE JUARES is a 59 year old M, referred to Occupational Therapy by RAAD Moser, with a diagnosis of open wound of R RF, open wound to unspecified finger damage to nail. Date of Evaluation: 10/29/24 Occupational Therapist: Lupe Grijalva Subjective Subjective: This 59 year old male arrives with dx open wound L RF pt also with MF nail bed injury. Injury occurred 09/16/24 hand getting caught in machine at work. Originally tried to preserve tip of RF however ended up amputating 09/30/24. pt is now 4 weeks and 1 day from surgery. Pt back to work as light duty R hand work. Pt is R handed. 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 pt reports hypersensitivity at this time as well as lack of movement. Pain L hand RF: Current Pain Intensity: 3 L hand MF: Current Pain Intensity: 3 Objective Objective/Observation: pt arrives L hand RF healed with small scab at ulnar side of tip of digit ROM ROM Comments: L hand RF PIP 90 R hand RF PIP 95 L hand slight wiggle at the DIP L hand MF DIP 25 degrees R hand MF DIP 75 degrees Strength Knifer Up: L 40# R 100# Edema Other: L hand RF 6cm R hand RF 5 cm L MF 5.5 cm R MF 5.5 Sensation Sensation Comments: RF occ numbness and tingling MF occ numbness and tingling pressure feeling MF 3.61 RF 3.22 Quick DASH-Disab of Arm,Shoulder& Hand Quick DASH Score: [phone] Goals Goal:100% adherence to protocol: Yes Goal:ROM equal to unaffected hand: Yes Goal:Knifer Up/Pinch strength at least 75% of unaffected hand: Yes Goal:No pain with affected hand use: Yes Goal:Full use of affected hand in daily activities including work: Yes Goal:Decrease scar hypersensitivity: Yes Comment: quick dash Other Goal: pt will improve quick dash score by 15 points or more in order to improve functional use of L UE pt will decrease swelling of L hand RF DIP joint equal to non affected side. Rehabilitation General Assessment: This 59 year old male arrives with L RF amputation at DIP level and L MF nail damage. Pt presents with impairments in ROM, strength, increased swelling as well as hypersensitivity impacting ability to utilize hand during day to day tasks. pt would benefit from OT services 2-3x a week for 6 weeks in order to return to normal functional use of LUE. Rehabilitation Potential: Good Anticipated Interventions Anticipated Interventions: A/AAROM/PROM, Strengthening, Edema Control, Scar Care, Triggerpoint Release, Desensitization, Wound Care, Modalities, Joint Protection/Energy Conservation, Sensory Stimulation, Education re Diagnosis and Home Program Visit Plan Frequency: 2-3x /Week Duration: 6 Weeks General Plan: desensitization shaping digit strengthening ROM TEXT: Thank you for the opportunity to evaluate your patient. For Medicare and Medicare HMO plans, please review the plan of care and approve it. It will need to be FAXED BACK to us at [phone] for Medicare purposes. Please let me know if there are questions or concerns regarding this plan of care. Physician Signature: Date:
--- NOTE | 2024-12-01 09:45 | HP.OT.NRP ---
Patient Information Patient Information: MADELAINE JUARES was seen in my office for initial evaluation on 10/29/24. The following Plan of Care was established for this patient: POC Established Initial Frequency: 2-3x /Week Initial Duration: 6 Weeks Plan: continue to progress functional strengthening, increased light touch tolerance, and adherence to at home program for strengthening and desensitization Anticipated Interventions Anticipated Interventions: A/AAROM/PROM, Strengthening, Edema Control, Scar Care, Triggerpoint Release, Desensitization, Wound Care, Modalities, Joint Protection/Energy Conservation, Sensory Stimulation, Education re Diagnosis and Home Program Last Seen Last Seen: This patient was last seen in our office 12/01/24. Pertinent comments regarding their Occupational therapy will appear below: This 59 year old male seen by OT for L hand RF amputation and injury to MF . pt with progress throughout POC in ROM, functional use, decreased pain and hypersensitivity as well as improved strength. discharge at this time per c9 date limit. pt to follow up with surgeon later this week. At this point I will be discontinuing this patient from occupational therapy. I would be happy to see this patient again in the future if found appropriate by the physician. Thank you! Lupe Grijalva
== END 2024-12-01 19:00 | disposition home or self-care (01) ==
LOC: OT 09:00
PROVIDERS: PCP Internal Medicine; Referring Provider Nurse Practitioner Family; Visit Provider Nurse Practitioner Family
DX: S61.305D Unspecified open wound of left ring finger with damage to nail, subsequent encounter (principal)
CPT/HCPCS: 97110; 97166; 97530

== ENCOUNTER → 2024-12-15 | Outpatient (CLI) | payer OTHER, SELFPAY ==
[2024-12-15 10:30] LABS: Prothrombin Time (Protime)PT. 13.6 SECONDS (11.7-14.9)
== END | disposition home or self-care (01) ==
LOC: LAB 09:21
PROVIDERS: PCP Internal Medicine; Referring Provider Clinical Nurse Specialist Adult Health; Visit Provider Clinical Nurse Specialist Adult Health
DX: Z79.01 Long term (current) use of anticoagulants (principal)
CPT/HCPCS: 36415; 85610

== ENCOUNTER → 2025-02-23 | Outpatient (CLI) | payer OTHER, SELFPAY ==
[2025-02-23 11:59] LABS: Absolute Lymphocyte Count 1.18 X10^3/uL (0.83-4.51); Absolute Neutrophil Count 2.8 X10^3/uL (2.0-7.7); Basophil# 0.03 X10^3/uL; Basophil% 0.6 % (0-1); Eosinophil# 0.42 X10^3/uL; Eosinophils% 8.5 % (0-5); Hematocrit 42.8 % (40-54); Hemoglobin 14.6 g/dL (13.0-16.5); Lymphocyte # 1.18 X10^3/ul (0.83-4.51); Lymphocyte % 23.9 % (19-41); Mean Corp Hgb Conc 34.1 g/dL (32-36); Mean Corpuscular Hgb 32.1 pg (27.0-32.0); Mean Corpuscular Volume 94.1 fL (80-94); Mean Platelet Vol. 10.3 fl (6.2-12.0); Monocyte# 0.46 X10^3/uL; Monocyte% 9.3 % (0-10); NRBC Flagged by Analyzer 0 % (0-5); Neutrophil # 2.83 X10^3/uL (2.7-7.7); Neutrophil % 57.5 % (47-70); Platelet Count 195 K/mm3 (150-450); RBC Distribution Width CV 11.9 % (11.6-14.6); RBC Distribution Width SD 41.1 fl (35.1-43.9); Red Blood Count 4.55 M/mm3 (4.6-6.2); White Blood Count 4.9 K/mm3 (4.4-11.0)
[2025-02-23 12:08] LABS: Prothrombin Time (Protime)PT. 13.7 SECONDS (11.7-14.9)
[2025-02-23 14:54] LABS: ALB/GLOB Ratio 1.8 RATIO (0.9-2.4); AST(SGOT) 38 U/L (<=37); Alanine Aminotransfer ALT/SGPT 38 U/L (<=46); Albumin, Serum 3.9 g/dL (3.4-4.8); Alkaline Phosphatase 67 U/L (40-129); Anion Gap 10 (5-15); BUN 13 mg/dL (4-19); Calcium,Total 9.3 mg/dL (7.6-11.0); Carbon Dioxide 26.5 mmol/L (21.0-32.0); Chloride 104 mmol/L (98-108); Creatinine, Serum 1.05 mg/dL (0.70-1.20); EST Glomerular Filtration Rate 80 (>60); Globulin 2.2 g/dL (2.2-4.2); Glucose 124 mg/dL (70-99); Potassium 4.2 mmol/L (3.3-5.1); Protein, Total 6.2 g/dL (5.9-8.4); Sodium Level 140 mmol/L (133-145); Total Bilirubin 0.41 mg/dL (0.00-1.30)
== END | disposition home or self-care (01) ==
LOC: LAB 10:33
PROVIDERS: PCP Internal Medicine; Referring Provider Dermatology; Visit Provider Clinical Nurse Specialist Adult Health
DX: L43.8 Other lichen planus (principal); Z79.899 Other long term (current) drug therapy; L82.1 Other seborrheic keratosis; L57.8 Other skin changes due to chronic exposure to nonionizing radiation; L81.4 Other melanin hyperpigmentation; Z08 Encounter for follow-up examination after completed treatment for malignant neoplasm; Z85.828 Personal history of other malignant neoplasm of skin; D18.01 Hemangioma of skin and subcutaneous tissue; Z71.89 Other specified counseling; L24.9 Irritant contact dermatitis, unspecified cause; L57.0 Actinic keratosis; Z79.01 Long term (current) use of anticoagulants
CPT/HCPCS: 36415; 80053; 85025; 85610

== ENCOUNTER → 2025-05-13 | Outpatient (CLI) | payer OTHER, SELFPAY ==
--- NOTE | 2025-05-13 10:46 | RAD_ITS ---
EXAM: XR Lumbosacral Spine, 2 or 3 Views CLINICAL INDICATION: LUMBAR DEGENERATIBE DISC TECHNIQUE: Frontal and lateral views of the lumbar spine and sacrum. COMPARISON: No relevant prior studies available. FINDINGS: VERTEBRAE: Degenerative facet arthropathy throughout the lumbar spine, most prominent in the lower lumbar spine. Moderate facet arthropathy of L3-S1. Normal alignment. No acute fracture. SACRUM/COCCYX: Unremarkable as visualized. No acute fracture. DISC SPACES: Degenerative disc disease throughout the lumbar spine. SOFT TISSUES: Unremarkable. RAD/Lumbar Spine 2 or 3 Views IMPRESSION: 1. No acute fracture. 2. Degenerative changes lumbar spine as described. Reading Location: [id number]
== END | disposition home or self-care (01) ==
LOC: MTRAD 10:45
PROVIDERS: PCP Internal Medicine; Referring Provider Clinical Nurse Specialist Adult Health; Visit Provider Clinical Nurse Specialist Adult Health
DX: M51.369 Other intervertebral disc degeneration, lumbar region without mention of lumbar back pain or lower extremity pain (principal)
CPT/HCPCS: 72100

== ENCOUNTER → 2025-05-20 | Outpatient (CLI) | payer OTHER, SELFPAY ==
[2025-05-20 08:35] LABS: Prothrombin Time (Protime)PT. 13.6 SECONDS (11.7-14.9)
== END | disposition home or self-care (01) ==
LOC: LAB 07:49
PROVIDERS: PCP Internal Medicine; Referring Provider Clinical Nurse Specialist Adult Health; Visit Provider Clinical Nurse Specialist Adult Health
DX: Z79.01 Long term (current) use of anticoagulants (principal)
CPT/HCPCS: 36415; 85610

== ENCOUNTER → 2025-07-13 | Outpatient (CLI) | payer OTHER, SELFPAY ==
[2025-07-13 12:29] LABS: Prothrombin Time (Protime)PT. 13.7 SECONDS (11.7-14.9)
== END | disposition home or self-care (01) ==
LOC: LAB 10:11
PROVIDERS: PCP Internal Medicine; Referring Provider Clinical Nurse Specialist Adult Health; Visit Provider Clinical Nurse Specialist Adult Health
DX: Z79.01 Long term (current) use of anticoagulants (principal)
CPT/HCPCS: 36415; 85610